=== PATIENT | male | born 1945 | race Caucasian/White ===

== ENCOUNTER 2017-05-08 08:17 | Inpatient (IN) | payer MEDICARE, SELFPAY ==
[2017-05-08] VITALS (9 sets, daily range): BP systolic 135–172; BP diastolic 79–106; PULSE 93–119; RESP 16–91; TEMP 36.6–37.5; O2SAT 90–97; BMI 29.0; BMI 29.4
--- NOTE | 2017-05-08 08:31 | CT_ITS ---
CT abdomen pelvis wo con COMPARISON: Ultrasound the gallbladder same date HISTORY: Right upper quadrant pain and tenderness, nausea and vomiting TECHNIQUE: Multiaxial scans obtained from hemidiaphragms the pelvic floor and were performed without IV or oral contrast. Sagittal and coronal reformats were evaluated as well. FINDINGS: The lower lung [place] are clear except for minimal atelectasis right posterior gutter. There is a moderate-sized hiatal hernia with diffuse wall thickening of the distal esophagus possibly reflecting chronic reflux esophagitis. The stomach is distended with ingested fluid and food particles but otherwise appears normal. The the spleen is normal. Gallbladder is markedly abnormal with multiple calcified and partially calcified gallstones and mild diffuse pericholecystic hazy fat stranding. The pancreas is grossly normal. The liver is normal size and there are no definite dilated intrahepatic ducts. The adrenal glands are normal. The kidneys are normal in size and there is a small faint calculus lower pole left kidney measuring 4 to 5 mm in diameter. There Is no obstructive uropathy. Small bowel appears normal. The appendix is normal caliber and retrocecal in location. There is a moderate amount stool in ascending colon. There are scattered diverticuli of the sigmoid colon without evidence of diverticulitis. The urinary bladder is partially decompressed, the prostate is normal in size. There are small bilateral angle hernias containing fat only. There are prominent degenerative changes of the thoracal lumbar junction. IMPRESSION: 1 obvious cholelithiasis with findings suggesting acute cholecystitis and ultrasound performed the same date showed a positive Forrester's sign 2. Moderate sized hiatal hernia with diffuse wall thickening of the distal esophagus 3. Mild diverticulosis of the sigmoid colon without diverticulitis
--- NOTE | 2017-05-08 08:32 | XR_ITS ---
XR chest 2V COMPARISON: None HISTORY: Right upper quadrant pain TECHNIQUE: PA and lateral chest FINDINGS: This is a somewhat poor inspiration however lung mun[place] are clear of infiltrate. The may be minimal atelectasis at the left base. Cardiac size is normal and the vascularity is normal. There are mild degenerative changes of the midthoracic spine. IMPRESSION: Minimal left basilar atelectasis otherwise negative chest
--- NOTE | 2017-05-08 08:33 | HMH.EDGENADL ---
ED Disposition Clinical Impression: Gallstone pancreatitis Cholecystitis with cholelithiasis Qualifiers: Cholelithiasis location: gallbladder Disposition: Admitted As Inpatient Condition on Discharge: Good - Critical Care Critical Care Time: No Attestation: On , the high probability of a clinically significant, sudden or life threatening deterioration of the following system(s) required my full and direct attention, intervention and personal management. The time I documented below is in addition to time spent performing reported procedures but includes the following listed in this critical care notation. Medical Decision Making - Edward Inquiry Pt receiving controlled substance: No Edward was queried for this patient: No Vital Signs: 05/08/17 08:23 05/08/17 09:48 05/08/17 10:56 Temperature 97.8 F 98.2 F 98.6 F Temperature Source Oral Oral Oral Pulse Rate Pulse Rate [Left Brachial] 97 H 103 H Pulse Rate [Right Brachial] 93 H Respiratory Rate 18 18 18 Blood Pressure Blood Pressure [Left Arm] 135/84 160/79 Blood Pressure [Right Arm] 169/106 Blood Pressure Mean [Left Arm] 101 106 Blood Pressure Mean [Right Arm] 127 Blood Pressure Source Blood Pressure Source [Left Arm] Automatic Cuff Automatic Cuff Blood Pressure Source [Right Arm] Automatic Cuff Blood Pressure Position Blood Pressure Position [Left Arm] Supine Sitting Blood Pressure Position [Right Arm] Supine 02 Sat by Pulse Oximetry 96 97 93 L Oxygen Delivery Method Room Air Room Air Room Air 05/08/17 11:20 05/08/17 11:26 Temperature 98.8 F Temperature Source Oral Pulse Rate 103 H Pulse Rate [Left Brachial] Pulse Rate [Right Brachial] Respiratory Rate 16 Blood Pressure 158/94 Blood Pressure [Left Arm] Blood Pressure [Right Arm] Blood Pressure Mean [Left Arm] Blood Pressure Mean [Right Arm] Blood Pressure Source Automatic Cuff Blood Pressure Source [Left Arm] Blood Pressure Source [Right Arm] Blood Pressure Position Sitting Blood Pressure Position [Left Arm] Blood Pressure Position [Right Arm] 02 Sat by Pulse Oximetry 92 L Oxygen Delivery Method Room Air Room Air - Lab Data Lab Results 05/08/17 08:44: WBC 13.1 H, RBC 5.59, Hgb 16.0, Hct 49.9, MCV 89.3, MCH 28.7, MCHC 32.1, RDW 13.6, Plt Count 335, MPV 7.5, Neut % (Auto) 85.5 H, Lymph % (Auto) 9.9 L, [place] % (Auto) 4.3, Eos % (Auto) 0.1, Baso % (Auto) 0.2, Neut # (Auto) 11.2 H, Lymph # (Auto) 1.3, [place] # (Auto) 0.6, Eos # (Auto) 0.0, Baso # (Auto) 0.0, Total Counted 100, Neutrophils % (Manual) 88 H, Lymphocytes % (Manual) 9 L, Monocytes % (Manual) 3, Platelet Estimate Normal, RBC Morphology Normal 05/08/17 08:44: Sodium 137, Potassium 3.6, Chloride 98, Carbon Dioxide 28, Anion Gap 14.6, BUN 17, Creatinine 1.12, Estimated Creat Clear 72, Estimated GFR 65, Est GFR ( Amer) 78, Glucose 194 H, Calcium 9.2, Total Bilirubin 1.6 H, AST 32, ALT 115 H, Alkaline Phosphatase 187 H, Total Protein 8.9 H, Albumin 3.9, Globulin 5.0 H, Albumin/Globulin Ratio 0.8 L, Amylase 326 H*, Lipase 1172 H 05/08/17 08:44: Lactic Acid 2.2 H 05/08/17 08:44: Lactate Dehydrogenase 181 05/08/17 13:00: Lactic Acid Fup @ 4Hr 2.7 H 05/08/17 15:26: Lactic Acid Fup @ 2Hr 2.6 H 05/08/17 16:30: POC Glucose 187 05/08/17 20:02: Urine Color Yellow, Urine Appearance Clear, Urine pH 5.5, Ur Specific [place] >= 1.030, Urine Protein 2+, Urine Glucose (UA) Negative, Urine Ketones Trace, Urine Blood Negative, Urine Nitrate Negative, Urine Bilirubin 1+ A, Urine Urobilinogen 0.2, Ur Leukocyte Esterase Negative, Urine RBC 3-5, Urine WBC Occasional, Ur Squamous Epith Cells None, Other Crystals 2+, Urine Bacteria 1+ 05/08/17 22:05: POC Glucose 173 05/09/17 05:59: POC Glucose 155 05/09/17 06:49: WBC 24.5 H* D, RBC 5.69, Hgb 16.5, Hct 51.1, MCV 89.7, MCH 28.9, MCHC 32.3, RDW 14.0, Plt Count 341, MPV 8.3, Neut % (Auto) 86.4 H, Lymph % (Auto) 7.1 L, [place] % (Auto) 6.2, Eos % (Auto) 0.2, Baso % (Auto) 0.2
[2017-05-08 09:01] LABS: Basophils % 0.2 % (0.1-2.0); Eosinophils % 0.1 % (0.1-12.0); Hematocrit 49.9 % (42.0-52.0); Lymphocytes # 1.3 K/mm3 (0.7-4.5); Lymphocytes % 9.9 K/mm3 (10-50); Mean Corpuscular HGB Conc 32.1 g/dL (31.8-35.4); Mean Corpuscular Hemoglobin 28.7 pg (27.0-31.2); Mean Corpuscular Volume 89.3 fl (80-94); Mean Platelet Volume 7.5 fl (7.4-10.4); Monocytes # 0.6 K/mm3 (0.1-1.0); Monocytes % 4.3 % (1.7-9.3); Neutrophils # 11.2 K/mm3 (1.8-7.8); Neutrophils % 85.5 % (37.0-80.0); Platelet Count 335 K/mm3 (142-424); Red Blood Count 5.59 M/mm3 (4.60-6.20); Red Cell Distribution Width 13.6 % (11.5-17.5); White Blood Count 13.1 K/mm3 (4.8-10.8)
[2017-05-08 09:04] LABS: MANUAL DIFFERENTIAL MANUAL DIFFERENTIAL (MANUAL DIFF)
--- NOTE | 2017-05-08 09:04 | US_ITS ---
US gallbladder COMPARISON: None HISTORY: Right upper quadrant pain and tenderness, nausea and vomiting TECHNIQUE: Targeted ultrasound right upper quadrant FINDINGS: The pancreas was obscured by bowel gas. The liver is normal in size and shows a somewhat coarsened overall increased echogenicity suggesting fatty infiltration. The gallbladder is markedly abnormal with diffuse thickening of the gallbladder wall. There are multiple calcified and partially calcified gallstones and biliary sludge as well collecting near the neck of the gallbladder. There is marked tenderness over the gallbladder elicited by the transducer pressure. The common bile duct is mildly dilated measuring 0.7 cm in diameter. There is no intrahepatic biliary ductal dilatation. Right kidney measures 10.6 x 5.5 x 5.2 cm and shows a good cortical medullary junction with no hydronephrosis. IMPRESSION: Findings suggesting acute cholecystitis with positive Forrester's sign, obvious cholelithiasis and biliary sludge as well.
[2017-05-08 09:10] LABS: Alanine Aminotransferase 115 U/L (12-78); Albumin Level 3.9 gm/dL (3.4-5.0); Albumin/Globulin Ratio 0.8 (1.1-1.8); Alkaline Phosphatase 187 U/L (46-116); Amylase 326 U/L (25-125); Anion Gap 14.6 mEq/L (5-15); Aspartate Amino Transferase 32 U/L (15-37); Bilirubin,Total 1.6 mg/dL (0.2-1.0); Blood Urea Nitrogen 17 mg/dL (7-18); Calcium 9.2 mg/dL (8.5-10.1); Carbon Dioxide 28 mmol/L (21.0-32.0); Chloride 98 mmol/L (98-107); Creatinine Clearance Estimated 72 mL/min (0-300); Creatinine,Serum 1.12 mg/dL (0.70-1.30); Estimated Glomerular Filt Rate 65 ml/min (>60); GFR (African American) 78 ML/MIN (>60); Glucose 194 mg/dL (74-106); Lipase 1172 u/L (73-393); Potassium 3.6 mmoL/L (3.5-5.1); Sodium 137 mmol/L (136-145); Total Protein,Serum 8.9 gm/dL (6.4-8.2)
[2017-05-08 09:29] LABS: Lactic Acid 2.2 mmol/L (0.4-2.0)
--- NOTE | 2017-05-08 09:29 | HMH.EDABDPAI ---
ED Disposition Clinical Impression: Gallstone pancreatitis Cholecystitis with cholelithiasis Qualifiers: Cholelithiasis location: gallbladder Disposition: Admitted As Inpatient Condition on Discharge: Good - Critical Care Critical Care Time: No Attestation: On , the high probability of a clinically significant, sudden or life threatening deterioration of the following system(s) required my full and direct attention, intervention and personal management. The time I documented below is in addition to time spent performing reported procedures but includes the following listed in this critical care notation. Medical Decision Making - Medical Records Medical records reviewed: Yes: I reviewed the patient's medical records. - Edward Inquiry Pt receiving controlled substance: No Edward was queried for this patient: No Reason not queried -: Emergent pt cond-no time Risks and benefits of using a controlled substance: were discussed with pt by me Vital Signs: 05/08/17 08:23 05/08/17 09:48 Temperature 97.8 F 98.2 F Temperature Source Oral Oral Pulse Rate [Left Brachial] 97 H Pulse Rate [Right Brachial] 93 H Respiratory Rate 18 18 Blood Pressure [Left Arm] 135/84 Blood Pressure [Right Arm] 169/106 Blood Pressure Mean [Left Arm] 101 Blood Pressure Mean [Right Arm] 127 Blood Pressure Source [Left Arm] Automatic Cuff Blood Pressure Source [Right Arm] Automatic Cuff Blood Pressure Position [Left Arm] Supine Blood Pressure Position [Right Arm] Supine 02 Sat by Pulse Oximetry 96 97 Oxygen Delivery Method Room Air Room Air - Lab Data Lab results reviewed: Yes: I reviewed the patient's lab results. Lab Results 05/08/17 08:44: WBC 13.1 H, RBC 5.59, Hgb 16.0, Hct 49.9, MCV 89.3, MCH 28.7, MCHC 32.1, RDW 13.6, Plt Count 335, MPV 7.5, Neut % (Auto) 85.5 H, Lymph % (Auto) 9.9 L, [place] % (Auto) 4.3, Eos % (Auto) 0.1, Baso % (Auto) 0.2, Neut # (Auto) 11.2 H, Lymph # (Auto) 1.3, [place] # (Auto) 0.6, Eos # (Auto) 0.0, Baso # (Auto) 0.0, Total Counted 100, Neutrophils % (Manual) 88 H, Lymphocytes % (Manual) 9 L, Monocytes % (Manual) 3, Platelet Estimate Normal, RBC Morphology Normal 05/08/17 08:44: Sodium 137, Potassium 3.6, Chloride 98, Carbon Dioxide 28, Anion Gap 14.6, BUN 17, Creatinine 1.12, Estimated Creat Clear 72, Estimated GFR 65, Est GFR ( Amer) 78, Glucose 194 H, Calcium 9.2, Total Bilirubin 1.6 H, AST 32, ALT 115 H, Alkaline Phosphatase 187 H, Total Protein 8.9 H, Albumin 3.9, Globulin 5.0 H, Albumin/Globulin Ratio 0.8 L, Amylase 326 H*, Lipase 1172 H 05/08/17 08:44: Lactic Acid 2.2 H Result diagrams: 05/08/17 08:44 05/08/17 08:44 Orders (Tests/Meds): ED MEDICATIONS Generic Name Dose Route Start Last Admin Trade Name Freq PRN Reason Stop Dose Admin Piperacillin Sod/Tazobactam 100 mls @ 200 mls/hr 05/08/17 10:15 05/08/17 10:22 Sod 4.5 gm/ Sodium Chloride IV 05/22/17 10:14 200 mls/hr Q6H ASCENCION Administration Protocol Discontinued Medications Generic Name Dose Route Start Last Admin Trade Name Freq PRN Reason Stop Dose Admin Morphine Sulfate 4 mg 05/08/17 09:34 05/08/17 09:43 Morphine 4mg/Ml Syringe IV 05/08/17 09:35 4 mg ONCE ONE Administration Ondansetron HCl 4 mg 05/08/17 09:36 05/08/17 09:43 Zofran 4mg/2ml Vial IV 05/08/17 09:37 4 mg ONCE ONE Administration ORDERS Category Date Time Status Blood Culture Stat Micro 05/08/17 08:44 Received - CT Data CT Scan: Abdomen Time Received: 10:39 - US Data US Images: Gallbladder ED US Reviewed: Yes: I discussed the US results w/the radiologist Preliminary Findings: Gall Bladder Stones, Thick Gall Bladder Wall - Physician Consults Physician Consulted: Kate ([facility]) Time: 09:41 Reason -: Admission Comment/Response: in surgery until 1100, will call then said he will be a surgical consult Reason -: Admission Additional Consult: Dr Ayala Time: 10:36 Reason -: Admission Abdom
--- NOTE | 2017-05-08 09:32 | ED_ITS ---
ED Disposition Clinical Impression: Gallstone pancreatitis Cholecystitis with cholelithiasis Qualifiers: Cholelithiasis location: gallbladder Disposition: Admitted As Inpatient Condition on Discharge: Good - Critical Care Critical Care Time: No Attestation: On , the high probability of a clinically significant, sudden or life threatening deterioration of the following system(s) required my full and direct attention, intervention and personal management. The time I documented below is in addition to time spent performing reported procedures but includes the following listed in this critical care notation. Medical Decision Making - Medical Records Medical records reviewed: Yes: I reviewed the patient's medical records. - Edward Inquiry Pt receiving controlled substance: No Edward was queried for this patient: No Reason not queried -: Emergent pt cond-no time Risks and benefits of using a controlled substance: were discussed with pt by me Vital Signs: 05/08/17 08:23 05/08/17 09:48 Temperature 97.8 F 98.2 F Temperature Source Oral Oral Pulse Rate [Left Brachial] 97 H Pulse Rate [Right Brachial] 93 H Respiratory Rate 18 18 Blood Pressure [Left Arm] 135/84 Blood Pressure [Right Arm] 169/106 Blood Pressure Mean [Left Arm] 101 Blood Pressure Mean [Right Arm] 127 Blood Pressure Source [Left Arm] Automatic Cuff Blood Pressure Source [Right Arm] Automatic Cuff Blood Pressure Position [Left Arm] Supine Blood Pressure Position [Right Arm] Supine 02 Sat by Pulse Oximetry 96 97 Oxygen Delivery Method Room Air Room Air - Lab Data Lab results reviewed: Yes: I reviewed the patient's lab results. Lab Results 05/08/17 08:44: WBC 13.1 H, RBC 5.59, Hgb 16.0, Hct 49.9, MCV 89.3, MCH 28.7, MCHC 32.1, RDW 13.6, Plt Count 335, MPV 7.5, Neut % (Auto) 85.5 H, Lymph % (Auto ) 9.9 L, [place] % (Auto) 4.3, Eos % (Auto) 0.1, Baso % (Auto) 0.2, Neut # (Auto) 11.2 H, Lymph # (Auto) 1.3, [place] # (Auto) 0.6, Eos # (Auto) 0.0, Baso # (Auto) 0.0, Total Counted 100, Neutrophils % (Manual) 88 H, Lymphocytes % (Manual) 9 L , Monocytes % (Manual) 3, Platelet Estimate Normal, RBC Morphology Normal 05/08/17 08:44: Sodium 137, Potassium 3.6, Chloride 98, Carbon Dioxide 28, Anion Gap 14.6, BUN 17, Creatinine 1.12, Estimated Creat Clear 72, Estimated GFR 65, Est GFR ( Amer) 78, Glucose 194 H, Calcium 9.2, Total Bilirubin 1.6 H, AST 32, ALT 115 H, Alkaline Phosphatase 187 H, Total Protein 8.9 H, Albumin 3.9, Globulin 5.0 H, Albumin/Globulin Ratio 0.8 L, Amylase 326 H*, Lipase 1172 H 05/08/17 08:44: Lactic Acid 2.2 H Result diagrams: 05/08/17 08:44 05/08/17 08:44 Orders (Tests/Meds): ED MEDICATIONS Generic Name Dose Route Start Last Admin Trade Name Freq PRN Reason Stop Dose Admin Piperacillin Sod/Tazobactam 100 mls @ 200 mls/hr 05/08/17 10:15 05/08/17 10: 22 Sod 4.5 gm/ Sodium Chloride IV 05/22/17 10:14 200 mls/hr Q6H ASCENCION Administration Protocol Discontinued Medications Generic Name Dose Route Start Last Admin Trade Name Freq PRN Reason Stop Dose Admin Morphine Sulfate 4 mg 05/08/17 09:34 05/08/17 09:43 Morphine 4mg/Ml Syringe IV 05/08/17 09:35 4 mg ONCE ONE Administration Ondansetron HCl 4 mg 05/08/17 09:36 05/08/17 09:43 Zofran 4mg/2ml Vial IV 05/08/17 09:37 4 mg
[2017-05-08 09:41] LABS: Lymphocytes % 9 % (10-50); Monocytes % 3 % (2-9); Neutrophils % 88 % (42-76); Platelet Estimate Normal; RBC Morphology Normal; Total Cells Counted 100
--- NOTE | 2017-05-08 10:28 | PC.NURSE ---
DR GRAHAM DISCUSSING CASE WITH DR CASTELLANO
--- NOTE | 2017-05-08 10:30 | PC.NURSE ---
DR DENTON CULINARY ASSISTANT FOR SERVICE CALLED TO BE ADMITTED TO SERVICES DR DENTON WITH DX ACUTE CHOLECYSTITIS
[2017-05-08 12:55] LABS: Reflex Lactic Add Lactic Reflex
--- NOTE | 2017-05-08 13:53 | HMH.GSCON ---
*Admission Date: 05/08/17 *Chief complaint: Abdominal pain *History of present illness: Patient is a 72-year-old white male. He states that over the past couple of days he has had right lateral abdominal pain. This had become significantly more severe since last night. There are no exacerbating or alleviating factors. He has never had similar prior episodes. He presented to the emergency department this morning. He underwent evaluation which revealed a leukocytosis and slight elevation of liver function tests as well as elevation of NM's and lipase. He had imaging including CT scan as well as gallbladder ultrasound performed. Gallbladder ultrasound reveals multiple gallstones with some gallbladder wall thickening and 7 mm common bile duct. He was admitted for inpatient management and surgical consultation. Review of Systems - Constitutional Denies chills - Eyes Denies loss of vision - ENT Denies abnormal hearing - *Cardiovascular Denies chest pain - *Respiratory Denies shortness of breath - *Gastrointestinal Reports abdominal pain, Reports nausea - Integumentary/Breasts Denies hair loss [facility] History I have reviewed the patient's past medical history: Yes Medical History: Denies:: Cancer, Diabetes Mellitus Type 1, Diabetes Mellitus Type 2, Internal Pacemaker, MRSA Comment: History of polio Other Surgeries: No: Pacemaker Amputation: No Fractures: No Comment: Left upper extremity surgery for trauma - *Social History Educational Level: Completed High School Smoking Status: Former smoker Tobacco Type: cigarettes # Packs/Day (cigarettes): 3 #Yrs smoked (if former smoker): 15 Alcohol Intake: never Occupational Status: retired Housing: house Household Members: spouse - Psychiatric History Expresses thoughts of harming self/others: None Suicide Plan Description: No Plan *Family Hx:: Asthma, Cancer, Coronary Artery Disease, Diabetes, Heart Attack, Hyperlipidemia, Kidney Disease, Stroke Meds Home Medications Medication Instructions Recorded Confirmed Type No Known Home Medications [No 05/08/17 05/08/17 History Known Home Medications] Allergies Allergy/AdvReac Type Severity Reaction Status Date / Time No Known Allergies Allergy Verified 05/08/17 08:29 Exam Vital signs and Labs for Last 24 Hours: Temp Pulse Resp BP Pulse Ox 98.8 F 106 H 18 172/92 92 L 05/08/17 11:51 05/08/17 11:51 05/08/17 11:51 05/08/17 11:51 05/08/17 11:51 I & O for Last 24 hours: Intake & Output 05/06/17 05/07/17 05/08/17 05/09/17 11:59 11:59 11:59 11:59 Weight 188 lb - Constitutional no acute distress - *Routine HEENT Exam Eye: Absent: conjunctival icterus - *Routine Respiratory Exam Present: CTA bilaterally - *Routine Cardiovascular Exam Present: RRR - *Routine Abdominal Exam Present: tenderness, distended Comments: He has some tenderness with guarding and positive Forrester sign. Results - Labs 05/08/17 08:44 05/08/17 08:44 Assessment and Plan - Assessment and plan all Dx Assessment and Plan for all problems:: Patient actually has some findings consistent with biliary pancreatitis as well as acute cholecystitis at this time. Plan for IV fluids and antibiotics. Closely monitor liver function tests and pancreatic enzymes. If he has progressive elevation of liver function tests, particularly bilirubin and alkaline phosphatase, he could require ERCP rather soon. However, if he continues to show improvement of pancreatic enzymes likely would plan for cholecystectomy with intraoperative cholangiogram once pancreatitis is resolving during this hospitalization. I will send LDH level for full assessment of [place]'s criteria for his pancreatitis.
--- NOTE | 2017-05-08 13:57 | P.CONS_ITS ---
*Admission Date: 05/08/17 *Chief complaint: Abdominal pain *History of present illness: Patient is a 72-year-old white male. He states that over the past couple of days he has had right lateral abdominal pain. This had become significantly more severe since last night. There are no exacerbating or alleviating factors. He has never had similar prior episodes. He presented to the emergency department this morning. He underwent evaluation which revealed a leukocytosis and slight elevation of liver function tests as well as elevation of [place]'s and lipase. He had imaging including CT scan as well as gallbladder ultrasound performed. Gallbladder ultrasound reveals multiple gallstones with some gallbladder wall thickening and 7 mm common bile duct. He was admitted for inpatient management and surgical consultation. Review of Systems - Constitutional Denies chills - Eyes Denies loss of vision - ENT Denies abnormal hearing - *Cardiovascular Denies chest pain - *Respiratory Denies shortness of breath - *Gastrointestinal Reports abdominal pain, Reports nausea - Integumentary/Breasts Denies hair loss [facility] History I have reviewed the patient's past medical history: Yes Medical History: Denies:: Cancer, Diabetes Mellitus Type 1, Diabetes Mellitus Type 2, Internal Pacemaker, MRSA Comment: History of polio Other Surgeries: No: Pacemaker Amputation: No Fractures: No Comment: Left upper extremity surgery for trauma - *Social History Educational Level: Completed High School Smoking Status: Former smoker Tobacco Type: cigarettes # Packs/Day (cigarettes): 3 #Yrs smoked (if former smoker): 15 Alcohol Intake: never Occupational Status: retired Housing: house Household Members: spouse - Psychiatric History Expresses thoughts of harming self/others: None Suicide Plan Description: No Plan *Family Hx:: Asthma, Cancer, Coronary Artery Disease, Diabetes, Heart Attack, Hyperlipidemia, Kidney Disease, Stroke Meds Home Medications Medication Instructions Recorded Confirmed Type No Known Home Medications [No 05/08/17 05/08/17 History Known Home Medications] Allergies Allergy/AdvReac Type Severity Reaction Status Date / Time No Known Allergies Allergy Verified 05/08/17 08:29 Exam Vital signs and Labs for Last 24 Hours: Temp Pulse Resp BP Pulse Ox 98.8 F 106 H 18 172/92 92 L 05/08/17 11:51 05/08/17 11:51 05/08/17 11:51 05/08/17 11:51 05/08/17 11:51 I & O for Last 24 hours: Intake & Output 05/06/17 05/07/17 05/08/17 05/09/17 11:59 11:59 11:59 11:59 Weight 188 lb - Constitutional no acute distress - *Routine HEENT Exam Eye: Absent: conjunctival icterus - *Routine Respiratory Exam Present: CTA bilaterally - *Routine Cardiovascular Exam Present: RRR - *Routine Abdominal Exam Present: tenderness, distended Comments: He has some tenderness with guarding and positive Forrester sign. Results - Labs 05/08/17 08:44 05/08/17 08:44 Assessment and Plan - Assessment and plan all Dx Assessment and Plan for all problems:: Patient actually has some findings consistent with biliary pancreatitis as well as acute cholecystitis at this time. Plan for IV fluids and antibiotics. Closely monitor liver function tests and pancreatic enzymes
[2017-05-08 14:03] LABS: Lactic Acid Follow Up (RFLX 1) 2.7 (0.4-2.0)
[2017-05-08 14:52] LABS: Lactate Dehydrogenase 181 U/L (82-234)
--- NOTE | 2017-05-08 14:57 | HMH.HP ---
*Admission Date: 05/08/17 *Chief complaint: abdominal pain, vomiting *History of present illness: Mr. Smith is a 72-year-old white male with no significant medical hx. He states that over the past couple of days he has had right lateral abdominal pain. This had become significantly more severe since last night. There are no exacerbating or alleviating factors. He has never had similar prior episodes. He has been nauseated and vomiting. He presented to the emergency department this morning. He underwent evaluation which revealed a leukocytosis and slight elevation of liver function tests as well as elevation of lipase. He had imaging including CT scan as well as gallbladder ultrasound performed. Gallbladder ultrasound revealed multiple gallstones with some gallbladder wall thickening and 7 mm common bile duct. He was admitted for inpatient management and surgical consultation. [facility] History Medical History: Denies:: Cancer, Diabetes Mellitus Type 1, Diabetes Mellitus Type 2, Internal Pacemaker, MRSA Comment: Polio as a child Other Surgeries: No: Pacemaker Amputation: No Fractures: No Comment: Left arm repair, left knee, right great toe - *Social History Educational Level: Completed High School Smoking Status: Former smoker Tobacco Type: cigarettes # Packs/Day (cigarettes): 3 #Yrs smoked (if former smoker): 15 Alcohol Intake: never Occupational Status: retired Housing: house Household Members: spouse - Psychiatric History Expresses thoughts of harming self/others: None Suicide Plan Description: No Plan *Family Hx:: Asthma, Cancer, Coronary Artery Disease, Diabetes, Heart Attack, Hyperlipidemia, Hypertension, Kidney Disease, Stroke Review of Systems - Constitutional Denies body ache(s), Denies fatigue, Denies weakness - Eyes Denies blurry vision, Denies double vision - ENT Denies nasal congestion, Denies sore throat - *Cardiovascular Denies chest pain, Denies shortness of breath - *Respiratory Denies cough, Denies shortness of breath - *Gastrointestinal Reports abdominal pain (RMQ and RUQ), Reports nausea, Reports vomiting - *Genitourinary Denies difficulty urinating, Denies painful urination - *Musculoskeletal Denies joint pain, Denies muscle cramps - *Neurologic Denies abnormal hearing, Denies headache(s), Denies loss of vision, Denies dizziness, Denies weakness Meds Home Medications Medication Instructions Recorded Confirmed Type No Known Home Medications [No 05/08/17 05/08/17 History Known Home Medications] Allergies Allergy/AdvReac Type Severity Reaction Status Date / Time No Known Allergies Allergy Verified 05/08/17 08:29 Exam Vital signs and Labs for Last 24 Hours: Temp Pulse Resp BP Pulse Ox 98.8 F 106 H 18 172/92 92 L 05/08/17 11:51 05/08/17 11:51 05/08/17 11:51 05/08/17 11:51 05/08/17 11:51 Lab Results 05/08/17 08:44: WBC 13.1 H, RBC 5.59, Hgb 16.0, Hct 49.9, MCV 89.3, MCH 28.7, MCHC 32.1, RDW 13.6, Plt Count 335, MPV 7.5, Neut % (Auto) 85.5 H, Lymph % (Auto) 9.9 L, [place] % (Auto) 4.3, Eos % (Auto) 0.1, Baso % (Auto) 0.2, Neut # (Auto) 11.2 H, Lymph # (Auto) 1.3, [place] # (Auto) 0.6, Eos # (Auto) 0.0, Baso # (Auto) 0.0, Total Counted 100, Neutrophils % (Manual) 88 H, Lymphocytes % (Manual) 9 L, Monocytes % (Manual) 3, Platelet Estimate Normal, RBC Morphology Normal 05/08/17 08:44: Sodium 137, Potassium 3.6, Chloride 98, Carbon Dioxide 28, Anion Gap 14.6, BUN 17, Creatinine 1.12, Estimated Creat Clear 72, Estimated GFR 65, Est GFR ( Amer) 78, Glucose 194 H, Calcium 9.2, Total Bilirubin 1.6 H, AST 32, ALT 115 H, Alkaline Phosphatase 187 H, Total Protein 8.9 H, Albumin 3.9, Globulin 5.0 H, Albumin/Globulin Ratio 0.8 L, Amylase 326 H*, Lipase 1172 H 05/08/17 08:44: Lactic Acid 2.2 H 05/08/17 08:44: Lactate Dehydrogenase 181 05/08/17 13:00: Lactic Acid Fup @ 4Hr 2.7 H Microbiology Results 05/08/17 08:44 Blood Blood Culture - Pending
--- NOTE | 2017-05-08 15:01 | P.HP_ITS ---
*Admission Date: 05/08/17 *Chief complaint: abdominal pain, vomiting *History of present illness: Mr. Smith is a 72-year-old white male with no significant medical hx. He states that over the past couple of days he has had right lateral abdominal pain. This had become significantly more severe since last night. There are no exacerbating or alleviating factors. He has never had similar prior episodes. He has been nauseated and vomiting. He presented to the emergency department this morning. He underwent evaluation which revealed a leukocytosis and slight elevation of liver function tests as well as elevation of lipase. He had imaging including CT scan as well as gallbladder ultrasound performed. Gallbladder ultrasound revealed multiple gallstones with some gallbladder wall thickening and 7 mm common bile duct. He was admitted for inpatient management and surgical consultation. [facility] History Medical History: Denies:: Cancer, Diabetes Mellitus Type 1, Diabetes Mellitus Type 2, Internal Pacemaker, MRSA Comment: Polio as a child Other Surgeries: No: Pacemaker Amputation: No Fractures: No Comment: Left arm repair, left knee, right great toe - *Social History Educational Level: Completed High School Smoking Status: Former smoker Tobacco Type: cigarettes # Packs/Day (cigarettes): 3 #Yrs smoked (if former smoker): 15 Alcohol Intake: never Occupational Status: retired Housing: house Household Members: spouse - Psychiatric History Expresses thoughts of harming self/others: None Suicide Plan Description: No Plan *Family Hx:: Asthma, Cancer, Coronary Artery Disease, Diabetes, Heart Attack, Hyperlipidemia, Hypertension, Kidney Disease, Stroke Review of Systems - Constitutional Denies body ache(s), Denies fatigue, Denies weakness - Eyes Denies blurry vision, Denies double vision - ENT Denies nasal congestion, Denies sore throat - *Cardiovascular Denies chest pain, Denies shortness of breath - *Respiratory Denies cough, Denies shortness of breath - *Gastrointestinal Reports abdominal pain (RMQ and RUQ), Reports nausea, Reports vomiting - *Genitourinary Denies difficulty urinating, Denies painful urination - *Musculoskeletal Denies joint pain, Denies muscle cramps - *Neurologic Denies abnormal hearing, Denies headache(s), Denies loss of vision, Denies dizziness, Denies weakness Meds Home Medications Medication Instructions Recorded Confirmed Type No Known Home Medications [No 05/08/17 05/08/17 History Known Home Medications] Allergies Allergy/AdvReac Type Severity Reaction Status Date / Time No Known Allergies Allergy Verified 05/08/17 08:29 Exam Vital signs and Labs for Last 24 Hours: Temp Pulse Resp BP Pulse Ox 98.8 F 106 H 18 172/92 92 L 05/08/17 11:51 05/08/17 11:51 05/08/17 11:51 05/08/17 11:51 05/08/17 11:51 Lab Results 05/08/17 08:44: WBC 13.1 H, RBC 5.59, Hgb 16.0, Hct 49.9, MCV 89.3, MCH 28.7, MCHC 32.1, RDW 13.6, Plt Count 335, MPV 7.5, Neut % (Auto) 85.5 H, Lymph % (Auto ) 9.9 L, [place] % (Auto) 4.3, Eos % (Auto) 0.1, Baso % (Auto) 0.2, Neut # (Auto) 11.2 H, Lymph # (Auto) 1.3, [place] # (Auto) 0.6, Eos # (Auto) 0.0, Baso # (Auto) 0.0, Total Counted 100, Neutrophils % (Manual) 88 H, Lymphocytes % (Manual) 9 L , Monocytes % (Manual) 3, Platelet Estimate Normal, RBC Morphology Normal 05/08/17 08:44: Sodium 137, Potassium 3.6, Chloride 98, Carbon Dioxide 28, Anion Gap 14.6, BUN
--- NOTE | 2017-05-08 15:07 | PC.NURSE ---
PT REFUSED 1300 FSBS. PT STATED I AM NOT DIABETIC, I WON'T HAVE MY FINGER POKED. EDUCATION PROVIDED TO PATIENT ON IMPORTANCE OF FSBS. WILL CONTINUE TO MONITOR.
[2017-05-08 15:14] LABS: Reflex Lactic (2 hrs) Add Lactic Reflex
[2017-05-08 15:56] LABS: Lactic Acid Follow up (RFLX 2) 2.6 (0.4-2.0)
--- NOTE | 2017-05-08 15:58 | PC.NURSE ---
PT IS ALERT AND ORIENTED X3. CLEAR SPEECH, APPROPRIATE MOOD/AFFECT, FORGETFUL AT TIMES. PT IS RESTING IN BED. PAIN MEDICATION ADMINISTERED PER MAR. NO C/O NAUSEA/VOMITING/DIARRHEA. VSS. IV IS SECURE, PATENT AND INFUSING IVF. FALL PREVENTION EDUCATION PROVIDED, CALL LIGHT WITHIN REACH. WILL CONTINUE TO MONITOR
--- NOTE | 2017-05-08 16:42 | CA_ITS ---
PROCEDURE: 2-D M-mode and color Doppler study INDICATIONS FOR THE TEST: Chest pain COPD Heart Murmur Tobacco Smokingex Palpitations Fatigue Syncope Edema Hypertension Diabetes Mellitus Rheumatic Fever SOB AGUILAR Obesity+Hyperlipidemia Family History HD Additional History vague history of cardiac disease PATIENT INFORMATION HEIGHT: 67 WEIGHT: 188 GENDER: Male B/P: 172/92 2-D/M-MODE INTERPRETATION: 2-D MEASUREMENTS OBSERVED VALUES IN CMS Right Ventricular Dimension (RVDd) 2.5 Interventricular Septum (Thickness)(IVsd) 1.6 Left Ventricular Internal Dimensions(LVIDd) 2.3 Left Ventricular Posterior Wall (Thickness)(LVPWd) 1.1 Aortic Root 3.1 Aortic Cusp Separation 2.2 Left Atrial Dimensions (LAD) 2.6 2D 1. Left atrium is mildly enlarged, left ventricle is normal size, there is mild concentric left ventricular hypertrophy, there is hyperdynamic left ventricular systolic function, visually estimated ejection fraction over 65% with no obvious regional wall motion abnormality. 2. The right atrium and right ventricle are normal size and contractility. 3. The aortic valve is minimally thickened and fibrosed. 4. The mitral and tricuspid valve leaflets are minimally thickened. 5. The pulmonic valve is poorly visualized. 6. No significant pericardial effusion noted. DOPPLER INTERROGATION: Doppler interrogation of the aortic, mitral and tricuspid valvular presence of mild mitral and tricuspid regurgitation, tricuspid regurgitant jet velocity is insufficient for calculation of the right ventricular systolic pressure, diastolic parameters are inconclusive. CONCLUSION: 1. Normal left ventricular size, mild concentric left ventricular hypertrophy, visually estimated ejection fraction over 65% with no obvious regional wall motion abnormality, left ventricle is hyperdynamic. Diastolic parameters are inconclusive. 2. Mild mitral and tricuspid regurgitation 3. No significant pericardial effusion noted.
--- NOTE | 2017-05-08 19:35 | PC.NURSE ---
report given to antonella hutchinson
[2017-05-08 20:16] LABS: Microscopic, Urine URINE MICROSCOPIC (MICROSCOPIC)
[2017-05-08 20:23] LABS: Appearance,Urine CLEAR (Clear); Blood, Urine Negative (Negative); Color,Urine YELLOW (Yellow); Glucose,Urine (UA) Negative (Negative); Ketones,Urine TRACE (Negative); Leukocyte Esterase,Urine Negative (Negative); Nitrate,Urine Negative (Negative); PH,Urine 5.5 (5.0-8.5); Protein,Urine 2+ (Negative); Specific Gravity, Urine >= 1.030 (1.005-1.030); Urobilinogen,Urine 0.2 EU/dl (0.2)
[2017-05-08 20:25] LABS: Bilirubin,Urine 1+ (Negative)
[2017-05-08 20:49] LABS: Bacteria,Urine 1+ /lpf; Other Crystals,Urine 2+ /lpf; WBC,Urine Occasional #/hpf (0-3)
[2017-05-08 22:14] LABS: POC Glucose,Bedside 173 mg/dL (70-110)
[2017-05-09 02:01] LABS: POC Glucose,Bedside 187 mg/dL (70-110)
[2017-05-09 04:00] VITALS: BP 137/75; PULSE 139; RESP 18; TEMP 37.3; O2SAT 92
[2017-05-09 06:07] LABS: POC Glucose,Bedside 155 mg/dL (70-110)
--- NOTE | 2017-05-09 06:45 | PC.NURSE ---
PT COMPLAINS OF PAIN T/O SHIFT IN RIGHT SIDE OF ABDOMEN, DENIES N/V BUT STATES I HAVE THIS STUFF IN MY THROAT I CANT GET UP LUNG SOUNDS CLEAR, BS ACTIVE IN ALL 4 QAUDS. VSS. A&OX3. NO ACUTE DISTRESS NOTED. WILL CONTINUE TO MONITOR.
--- NOTE | 2017-05-09 07:10 | PC.NURSE ---
REPORT GIVEN TO Kenia CHAVEZ RN
--- NOTE | 2017-05-09 07:35 | PC.NURSE ---
REPORT GIVEN TO April BANKS W/C
[2017-05-09 07:55] LABS: Alanine Aminotransferase 65 U/L (12-78); Albumin Level 2.8 gm/dL (3.4-5.0); Albumin/Globulin Ratio 0.6 (1.1-1.8); Alkaline Phosphatase 118 U/L (46-116); Amylase 149 U/L (25-125); Anion Gap 14.1 mEq/L (5-15); Aspartate Amino Transferase 11 U/L (15-37); Bilirubin,Total 1.7 mg/dL (0.2-1.0); Blood Urea Nitrogen 34 mg/dL (7-18); Calcium 8.7 mg/dL (8.5-10.1); Carbon Dioxide 26 mmol/L (21.0-32.0); Chloride 102 mmol/L (98-107); Cholesterol 128 mg/dL (140-200); Creatinine Clearance Estimated 60 mL/min (0-300); Creatinine,Serum 1.37 mg/dL (0.70-1.30); Estimated Glomerular Filt Rate 51 ml/min (>60); GFR (African American) 62 ML/MIN (>60); Globulin 4.6 gm/dl (1.3-3.2); Glucose 168 mg/dL (74-106); HDL Cholesterol 42 mg/dL (27-67); LDL Cholesterol 74 mg/dL (0-130); Lipase 399 u/L (73-393); Magnesium 1.8 mg/dL (1.4-2.2); Phosphorous 2.9 mg/dL (2.4-4.9); Potassium 4.1 mmoL/L (3.5-5.1); Sodium 138 mmol/L (136-145); Total Protein,Serum 7.4 gm/dL (6.4-8.2); Triglycerides 59 mg/dL (30-200); VLDL Cholesterol 12 mg/dL (0-40)
[2017-05-09 08:00] VITALS: BP 148/56; PULSE 111; RESP 18; TEMP 37.3; O2SAT 91
[2017-05-09 08:03] LABS: Basophils # 0.1 K/mm3 (0-0.2); Basophils % 0.2 % (0.1-2.0); Eosinophils % 0.2 % (0.1-12.0); Hematocrit 51.1 % (42.0-52.0); Hemoglobin 16.5 g/dL (14.1-18.0); Lymphocytes # 1.8 K/mm3 (0.7-4.5); Lymphocytes % 7.1 K/mm3 (10-50); Mean Corpuscular HGB Conc 32.3 g/dL (31.8-35.4); Mean Corpuscular Hemoglobin 28.9 pg (27.0-31.2); Mean Corpuscular Volume 89.7 fl (80-94); Mean Platelet Volume 8.3 fl (7.4-10.4); Monocytes # 1.5 K/mm3 (0.1-1.0); Monocytes % 6.2 % (1.7-9.3); Neutrophils # 21.2 K/mm3 (1.8-7.8); Neutrophils % 86.4 % (37.0-80.0); Platelet Count 341 K/mm3 (142-424); Red Blood Count 5.69 M/mm3 (4.60-6.20); White Blood Count 24.5 K/mm3 (4.8-10.8)
--- NOTE | 2017-05-09 08:29 | P.PN_ITS ---
Subjective Patient reports: feels better Narrative: Patient feels somewhat better. He attributes this to placing his cell phone on the tender part of his abdomen. Exam Vital signs and Labs for Last 24 Hours: Temp Pulse Resp BP Pulse Ox 99.2 F 111 H 18 148/56 91 L 05/09/17 08:00 05/09/17 08:00 05/09/17 08:00 05/09/17 08:00 05/09/17 08:00 Laboratory Results - last 24 hr 05/08/17 13:00: Lactic Acid Fup @ 4Hr 2.7 H 05/08/17 15:26: Lactic Acid Fup @ 2Hr 2.6 H 05/08/17 16:30: POC Glucose 187 05/08/17 20:02: Urine Color Yellow, Urine Appearance Clear, Urine pH 5.5, Ur Specific [place] >= 1.030, Urine Protein 2+, Urine Glucose (UA) Negative, Urine Ketones Trace, Urine Blood Negative, Urine Nitrate Negative, Urine Bilirubin 1+ A, Urine Urobilinogen 0.2, Ur Leukocyte Esterase Negative, Urine RBC 3-5, Urine WBC Occasional, Ur Squamous Epith Cells None, Other Crystals 2+, Urine Bacteria 1+ 05/08/17 22:05: POC Glucose 173 05/09/17 05:59: POC Glucose 155 05/09/17 06:49: Sodium 138, Potassium 4.1, Chloride 102, Carbon Dioxide 26, Anion Gap 14.1, BUN 34 H D, Creatinine 1.37 H D, Estimated Creat Clear 60, Estimated GFR 51 L, Est GFR ( Amer) 62 D, Glucose 168 H, Calcium 8.7, Phosphorus 2.9, Magnesium 1.8, Total Bilirubin 1.7 H, AST 11 L D, ALT 65 D, Alkaline Phosphatase 118 H, Total Protein 7.4, Albumin 2.8 L D, Globulin 4.6 H, Albumin/Globulin Ratio 0.6 L, Triglycerides 59, Cholesterol 128 L, LDL Cholesterol 74, VLDL Cholesterol 12, HDL Cholesterol 42, Cholesterol/HDL Ratio 3.0, Amylase 149 H D, Lipase 399 H I & O for Last 24 hours: Intake & Output 05/06/17 05/07/17 05/08/17 05/09/17 11:59 11:59 11:59 11:59 Intake Total 1687 / 1687 Balance 1687 / 1687 Weight 188 lb - *Routine Abdominal Exam Present: tenderness, distended, guarding Progress Note: A&P (1) Cholecystitis with cholelithiasis Status: Acute Current Visit: Yes (2) Gallstone pancreatitis Status: Acute Assessment and plan: Pancreatitis appears to be improving by blood work. This time continue bowel rest, IV fluids, and antibiotics. Monitor liver function tests and pancreatic enzymes. Likely tentatively plan for laparoscopic cholecystectomy with intraoperative cholangiogram Thursday. However, if he shows significant elevation of bilirubin he could require ERCP Thursday. Current Visit: Yes (3) Leukocytosis Status: Acute Current Visit: Yes (4) Elevated lactic acid level Status: Acute Current Visit: Yes
[2017-05-09 08:32] LABS: MANUAL DIFFERENTIAL MANUAL DIFFERENTIAL (MANUAL DIFF)
--- NOTE | 2017-05-09 08:39 | HMH.ACPN2 ---
Internal Medicine - PN: Subj *Date: 05/09/17 *Time: 08:39 Interval history: Patient states his pain is improved slightly this morning. He states it feels better if he puts his cell phone near his abdomen. He would like some ice chips. No vomiting. Nausea has improved. Exam Vital signs and Labs for Last 24 Hours: Temp Pulse Resp BP Pulse Ox 99.2 F 111 H 18 148/56 91 L 05/09/17 08:00 05/09/17 08:00 05/09/17 08:00 05/09/17 08:00 05/09/17 08:00 Laboratory Results - last 24 hr 05/08/17 13:00: Lactic Acid Fup @ 4Hr 2.7 H 05/08/17 15:26: Lactic Acid Fup @ 2Hr 2.6 H 05/08/17 16:30: POC Glucose 187 05/08/17 20:02: Urine Color Yellow, Urine Appearance Clear, Urine pH 5.5, Ur Specific [place] >= 1.030, Urine Protein 2+, Urine Glucose (UA) Negative, Urine Ketones Trace, Urine Blood Negative, Urine Nitrate Negative, Urine Bilirubin 1+ A, Urine Urobilinogen 0.2, Ur Leukocyte Esterase Negative, Urine RBC 3-5, Urine WBC Occasional, Ur Squamous Epith Cells None, Other Crystals 2+, Urine Bacteria 1+ 05/08/17 22:05: POC Glucose 173 05/09/17 05:59: POC Glucose 155 05/09/17 06:49: WBC 24.5 H* D, RBC 5.69, Hgb 16.5, Hct 51.1, MCV 89.7, MCH 28.9, MCHC 32.3, RDW 14.0, Plt Count 341, MPV 8.3, Neut % (Auto) 86.4 H, Lymph % (Auto) 7.1 L, [place] % (Auto) 6.2, Eos % (Auto) 0.2, Baso % (Auto) 0.2, Neut # (Auto) 21.2 H, Lymph # (Auto) 1.8, [place] # (Auto) 1.5 H, Eos # (Auto) 0.0, Baso # (Auto) 0.1 05/09/17 06:49: Sodium 138, Potassium 4.1, Chloride 102, Carbon Dioxide 26, Anion Gap 14.1, BUN 34 H D, Creatinine 1.37 H D, Estimated Creat Clear 60, Estimated GFR 51 L, Est GFR ( Amer) 62 D, Glucose 168 H, Calcium 8.7, Phosphorus 2.9, Magnesium 1.8, Total Bilirubin 1.7 H, AST 11 L D, ALT 65 D, Alkaline Phosphatase 118 H, Total Protein 7.4, Albumin 2.8 L D, Globulin 4.6 H, Albumin/Globulin Ratio 0.6 L, Triglycerides 59, Cholesterol 128 L, LDL Cholesterol 74, VLDL Cholesterol 12, HDL Cholesterol 42, Cholesterol/HDL Ratio 3.0, Amylase 149 H D, Lipase 399 H I & O for Last 24 hours: Intake & Output 05/06/17 05/07/17 05/08/17 05/09/17 11:59 11:59 11:59 11:59 Intake Total 1687 / 1687 Balance 1687 / 1687 Weight 188 lb - Constitutional no acute distress - *Routine Respiratory Exam Present: CTA bilaterally - *Routine Cardiovascular Exam Present: RRR - *Routine Abdominal Exam Present: soft, normoactive bowel sounds, tenderness (RUQ and RMQ) - *Routine Extremities Exam Absent: edema Assessment and Plan (1) Cholecystitis with cholelithiasis Current visit: Yes Status: Acute Qualifiers: Cholelithiasis location: gallbladder Category: Medical Code(s): K80.10 - Calculus of gallbladder with chronic cholecystitis without obstruction (2) Gallstone pancreatitis Current visit: Yes Status: Acute Category: Medical Code(s): K85.10 - Biliary acute pancreatitis without necrosis or infection (3) Leukocytosis Current visit: Yes Status: Acute Category: Medical Code(s): D72.829 - Elevated white blood cell count, unspecified (4) Elevated lactic acid level Current visit: Yes Status: Acute Category: Medical Code(s): R79.89 - Other specified abnormal findings of blood chemistry - Assessment and plan all Dx Assessment and Plan for all problems:: His pancreatitis appears to be improving by blood work. Dr. Gatica recommends bowel rest, IV fluids, and antibiotics. Will monitor liver function tests and pancreatic enzymes. Possibly can do a laparoscopic cholecystectomy with intraoperative cholangiogram Thursday.
--- NOTE | 2017-05-09 08:42 | P.PN_ITS ---
Internal Medicine - PN: Subj *Date: 05/09/17 *Time: 08:39 Interval history: Patient states his pain is improved slightly this morning. He states it feels better if he puts his cell phone near his abdomen. He would like some ice chips. No vomiting. Nausea has improved. Exam Vital signs and Labs for Last 24 Hours: Temp Pulse Resp BP Pulse Ox 99.2 F 111 H 18 148/56 91 L 05/09/17 08:00 05/09/17 08:00 05/09/17 08:00 05/09/17 08:00 05/09/17 08:00 Laboratory Results - last 24 hr 05/08/17 13:00: Lactic Acid Fup @ 4Hr 2.7 H 05/08/17 15:26: Lactic Acid Fup @ 2Hr 2.6 H 05/08/17 16:30: POC Glucose 187 05/08/17 20:02: Urine Color Yellow, Urine Appearance Clear, Urine pH 5.5, Ur Specific [place] >= 1.030, Urine Protein 2+, Urine Glucose (UA) Negative, Urine Ketones Trace, Urine Blood Negative, Urine Nitrate Negative, Urine Bilirubin 1+ A, Urine Urobilinogen 0.2, Ur Leukocyte Esterase Negative, Urine RBC 3-5, Urine WBC Occasional, Ur Squamous Epith Cells None, Other Crystals 2+, Urine Bacteria 1+ 05/08/17 22:05: POC Glucose 173 05/09/17 05:59: POC Glucose 155 05/09/17 06:49: WBC 24.5 H* D, RBC 5.69, Hgb 16.5, Hct 51.1, MCV 89.7, MCH 28.9 , MCHC 32.3, RDW 14.0, Plt Count 341, MPV 8.3, Neut % (Auto) 86.4 H, Lymph % ( Auto) 7.1 L, [place] % (Auto) 6.2, Eos % (Auto) 0.2, Baso % (Auto) 0.2, Neut # ( Auto) 21.2 H, Lymph # (Auto) 1.8, [place] # (Auto) 1.5 H, Eos # (Auto) 0.0, Baso # (Auto) 0.1 05/09/17 06:49: Sodium 138, Potassium 4.1, Chloride 102, Carbon Dioxide 26, Anion Gap 14.1, BUN 34 H D, Creatinine 1.37 H D, Estimated Creat Clear 60, Estimated GFR 51 L, Est GFR ( Amer) 62 D, Glucose 168 H, Calcium 8.7, Phosphorus 2.9, Magnesium 1.8, Total Bilirubin 1.7 H, AST 11 L D, ALT 65 D, Alkaline Phosphatase 118 H, Total Protein 7.4, Albumin 2.8 L D, Globulin 4.6 H, Albumin/Globulin Ratio 0.6 L, Triglycerides 59, Cholesterol 128 L, LDL Cholesterol 74, VLDL Cholesterol 12, HDL Cholesterol 42, Cholesterol/HDL Ratio 3.0, Amylase 149 H D, Lipase 399 H I & O for Last 24 hours: Intake & Output 05/06/17 05/07/17 05/08/17 05/09/17 11:59 11:59 11:59 11:59 Intake Total 1687 / 1687 Balance 1687 / 1687 Weight 188 lb - Constitutional no acute distress - *Routine Respiratory Exam Present: CTA bilaterally - *Routine Cardiovascular Exam Present: RRR - *Routine Abdominal Exam Present: soft, normoactive bowel sounds, tenderness (RUQ and RMQ) - *Routine Extremities Exam Absent: edema Assessment and Plan (1) Cholecystitis with cholelithiasis Current visit: Yes Status: Acute Qualifiers: Cholelithiasis location: gallbladder Category: Medical Code(s): K80.10 - Calculus of gallbladder with chronic cholecystitis without obstruction (2) Gallstone pancreatitis Current visit: Yes Status: Acute Category: Medical Code(s): K85.10 - Biliary acute pancreatitis without necrosis or infection (3) Leukocytosis Current visit: Yes Status: Acute Category: Medical Code(s): D72.829 - Elevated white blood cell count, unspecified (4) Elevated lactic acid level Current visit: Yes Status: Acute Category: Medical Code(s): R79.89 - Other specified abnormal findings of blood chemistry - Assessment and plan all Dx Assessment and Plan for all problems:: His pancreatitis appears to be improving by blood work. Dr. Gatica recommends bowel rest, IV fluids, and antibiotics. Will monitor liver function tests and pancreatic enzymes. Possibly can do a laparoscopic cho
[2017-05-09 09:31] LABS: Lymphocytes % 11 % (10-50); Monocytes % 11 % (2-9); Neutrophils % 78 % (42-76); Total Cells Counted 100
[2017-05-09 09:32] LABS: Platelet Estimate Normal; RBC Morphology Normal
[2017-05-09 11:24] LABS: POC Glucose,Bedside 148 mg/dL (70-110)
--- NOTE | 2017-05-09 13:42 | P.CONPHA_ITS ---
[facility] Pharmacy VTE Monitoring - Patient Demographics Admission date: 05/09/17 Report Date: 05/09/17 Time: 13:41 Allergies/Adverse Reactions: Patient Allergies No Known Allergies Allergy (Verified 05/08/17 08:29) Height: 1.7 m Weight: 85.275 kg Patient Problems: Current Active Problems Cholecystitis with cholelithiasis (Acute) Gallstone pancreatitis (Acute) Leukocytosis (Acute) Elevated lactic acid level (Acute) - VTE Risk Labs: VTE Related Lab Results Hgb 16.5 g/dL (14.1-18.0) 05/09/17 06:49 Hct 51.1 % (42.0-52.0) 05/09/17 06:49 Plt Count 341 K/mm3 (142-424) 05/09/17 06:49 BUN 34 mg/dL (7-18) H D 05/09/17 06:49 Creatinine 1.37 mg/dL (0.70-1.30) H D 05/09/17 06:49 Estimated Creat Clear 60 mL/min (0-300) 05/09/17 06:49 Was VTE Risk Assessment Performed: Yes VTE Score: 2 VTE Risk Level: Low Risk - Prophylaxis Types of VTE Prophylaxis: TEDS Knee High Location of Applied Device: Bilateral Lower Extremeties - VTE Diagnosis Confirmed Comment: CYRUS ARANA ORDERED
[2017-05-09 16:00] VITALS: BP 141/81; PULSE 116; RESP 16; TEMP 37.4; O2SAT 90
--- NOTE | 2017-05-09 17:52 | PC.NURSE ---
PT A&Ox4 IN NAD THIS SHIFT. VSS. PT REPORTS PAIN 7-10/10 IN (R) ABDOMEN AND MEDICATED WITH MORPHINE PER APR. HEART RATE REG. LUNGS CTA. ABD SOFT, ROUND, TENDER WITH HYPOACTIVE BS x4 QUADS. (R) AC IV INFUSING D 5 1/2 NS @ 50ML/HR /S DIFFICULTY. NO S/S OF INFILTRATION/INFECTION AT INSERTION SITE. PT SHOWED THIS NURSE AN INAPPROPRIATE PICTURE AND WAS REDIRECTED THIS SHIFT. BED IN LOW POSITION, CALL MARTELL WITHIN REACH. WILL CONTINUE TO MONITOR.
--- NOTE | 2017-05-09 19:04 | PC.NURSE ---
Report given to Igor Abel RN
--- NOTE | 2017-05-09 19:20 | PC.NURSE ---
PT FULL CODE, REPORT FROM BETH
[2017-05-09 20:00] VITALS: BP 135/71; PULSE 112; RESP 16; TEMP 38.3; O2SAT 98
--- NOTE | 2017-05-09 20:11 | PC.NURSE ---
nurse notifiied of pts temp
--- NOTE | 2017-05-09 21:20 | PC.NURSE ---
Dr Ayala visited. New orders received
[2017-05-09 22:28] LABS: POC Glucose,Bedside 119 mg/dL (70-110)
--- NOTE | 2017-05-09 22:38 | PC.NURSE ---
PT RECEIVED MORPHINE AT 2207 FOR PAIN IN ABDOMEN RATED AT 10; REASSESSED AT 2237, ZERO PT IS SLEEPING
[2017-05-10 02:12] LABS: POC Glucose,Bedside 113 mg/dL (70-110)
--- NOTE | 2017-05-10 03:27 | PC.NURSE ---
PT ADMINISTERED MORPHINE AT 0257 FOR PAIN IN ABDOMEN RATED 10; REASSESSED AT 0327 AND ZERO PT IS ASLEEP
[2017-05-10 04:00] VITALS: BP 105/51; PULSE 114; RESP 20; TEMP 36.7; O2SAT 91
--- NOTE | 2017-05-10 06:01 | PC.NURSE ---
PT SLEPT INTERVALS THIS SHIFT. C/O ABD PAIN X2 REQUIRING PRN PAIN MEDICATION. IV SECURE AND PATENT INFUSING D51/2NS@50/HR, ALSO CONTINUES ANTIBIOTICS. PT HAS A.M. LABS SCHEDULED. BREATH SOUNDS EQUAL AND CLEAR. NO C/O CHEST PAIN OR SOA. PT STABLE. WILL CONTINUE TO MONITOR. REPORT TO BE GIVEN TO ONCOMING NURSE.
[2017-05-10 06:25] LABS: Basophils % 0.2 % (0.1-2.0); Eosinophils # 0.1 K/mm3 (0.0-0.4); Eosinophils % 0.4 % (0.1-12.0); Hematocrit 45.4 % (42.0-52.0); Lymphocytes # 1.7 K/mm3 (0.7-4.5); Mean Corpuscular Hemoglobin 28.9 pg (27.0-31.2); Mean Corpuscular Volume 90.3 fl (80-94); Mean Platelet Volume 7.8 fl (7.4-10.4); Monocytes % 5.8 % (1.7-9.3); Neutrophils # 14.6 K/mm3 (1.8-7.8); Neutrophils % 83.6 % (37.0-80.0); Platelet Count 282 K/mm3 (142-424); Red Blood Count 5.03 M/mm3 (4.60-6.20); Red Cell Distribution Width 13.8 % (11.5-17.5); White Blood Count 17.5 K/mm3 (4.8-10.8)
[2017-05-10 06:28] LABS: Hemoglobin 14.5 g/dL (14.1-18.0)
[2017-05-10 06:29] LABS: MANUAL DIFFERENTIAL MANUAL DIFFERENTIAL (MANUAL DIFF)
[2017-05-10 06:45] LABS: Lymphocytes % 11 % (10-50); Monocytes % 6 % (2-9); Neutrophils % 77 % (42-76); Platelet Estimate Normal; Total Cells Counted 100
[2017-05-10 06:46] LABS: RBC Morphology Normal
[2017-05-10 06:49] LABS: Amylase 39 U/L (25-125); Lipase 97 u/L (73-393)
[2017-05-10 07:08] LABS: POC Glucose,Bedside 126 mg/dL (70-110)
--- NOTE | 2017-05-10 07:20 | PC.NURSE ---
REPORT GIVEN TO April BANKS W/C
[2017-05-10 08:00] VITALS: BP 136/79; PULSE 101; RESP 16; TEMP 36.7; O2SAT 91
--- NOTE | 2017-05-10 09:37 | HMH.GSPN ---
Subjective Narrative: Patient states that he feels somewhat better. He still does have some abdominal pain when moving around. He is tolerating some clear liquids. Exam Vital signs and Labs for Last 24 Hours: Temp Pulse Resp BP Pulse Ox 98.0 F 101 H 16 136/79 91 L 05/10/17 08:00 05/10/17 08:00 05/10/17 08:00 05/10/17 08:00 05/10/17 08:00 Laboratory Results - last 24 hr 05/09/17 11:09: POC Glucose 148 05/09/17 16:56: POC Glucose 113 05/09/17 22:12: POC Glucose 119 05/10/17 05:01: POC Glucose 126 05/10/17 05:55: Amylase 39 D, Lipase 97 05/10/17 05:55: WBC 17.5 H D, RBC 5.03, Hgb 14.5 D, Hct 45.4, MCV 90.3, MCH 28.9, MCHC 32.0, RDW 13.8, Plt Count 282, MPV 7.8, Neut % (Auto) 83.6 H, Lymph % (Auto) 10.0, [place] % (Auto) 5.8, Eos % (Auto) 0.4, Baso % (Auto) 0.2, Neut # (Auto) 14.6 H, Lymph # (Auto) 1.7, [place] # (Auto) 1.0, Eos # (Auto) 0.1, Baso # (Auto) 0.0, Total Counted 100, Neutrophils % (Manual) 77 H, Band Neutrophils % 6.0, Lymphocytes % (Manual) 11, Monocytes % (Manual) 6, Platelet Estimate Normal, RBC Morphology Normal I & O for Last 24 hours: Intake & Output 05/07/17 05/08/17 05/09/17 05/10/17 11:59 11:59 11:59 11:59 Intake Total 1687 / 1687 2515 / 2515 Output Total 500 / 500 Balance 1687 / 1687 2014 Weight 188 lb 188 lb - Constitutional no acute distress - *Routine Abdominal Exam Present: soft, tenderness Progress Note: A&P (1) Cholecystitis with cholelithiasis Status: Acute Assessment and plan: Appears as though the biliary pancreatitis has shown some resolution by pancreatic enzymes. He does however have significant ongoing tenderness and pain with persistent leukocytosis, albeit improving. Will place the patient on n.p.o. status at this time. Check liver function tests as well as lactate. Possible cholecystectomy today or tomorrow. Current Visit: Yes (2) Gallstone pancreatitis Status: Acute Current Visit: Yes (3) Leukocytosis Status: Acute Current Visit: Yes (4) Elevated lactic acid level Status: Acute Current Visit: Yes
--- NOTE | 2017-05-10 09:40 | P.PN_ITS ---
Subjective Narrative: Patient states that he feels somewhat better. He still does have some abdominal pain when moving around. He is tolerating some clear liquids. Exam Vital signs and Labs for Last 24 Hours: Temp Pulse Resp BP Pulse Ox 98.0 F 101 H 16 136/79 91 L 05/10/17 08:00 05/10/17 08:00 05/10/17 08:00 05/10/17 08:00 05/10/17 08:00 Laboratory Results - last 24 hr 05/09/17 11:09: POC Glucose 148 05/09/17 16:56: POC Glucose 113 05/09/17 22:12: POC Glucose 119 05/10/17 05:01: POC Glucose 126 05/10/17 05:55: Amylase 39 D, Lipase 97 05/10/17 05:55: WBC 17.5 H D, RBC 5.03, Hgb 14.5 D, Hct 45.4, MCV 90.3, MCH 28.9, MCHC 32.0, RDW 13.8, Plt Count 282, MPV 7.8, Neut % (Auto) 83.6 H, Lymph % (Auto) 10.0, [place] % (Auto) 5.8, Eos % (Auto) 0.4, Baso % (Auto) 0.2, Neut # ( Auto) 14.6 H, Lymph # (Auto) 1.7, [place] # (Auto) 1.0, Eos # (Auto) 0.1, Baso # ( Auto) 0.0, Total Counted 100, Neutrophils % (Manual) 77 H, Band Neutrophils % 6.0, Lymphocytes % (Manual) 11, Monocytes % (Manual) 6, Platelet Estimate Normal , RBC Morphology Normal I & O for Last 24 hours: Intake & Output 05/07/17 05/08/17 05/09/17 05/10/17 11:59 11:59 11:59 11:59 Intake Total 1687 / 1687 2515 / 2515 Output Total 500 / 500 Balance 1687 / 1687 2014 Weight 188 lb 188 lb - Constitutional no acute distress - *Routine Abdominal Exam Present: soft, tenderness Progress Note: A&P (1) Cholecystitis with cholelithiasis Status: Acute Assessment and plan: Appears as though the biliary pancreatitis has shown some resolution by pancreatic enzymes. He does however have significant ongoing tenderness and pain with persistent leukocytosis, albeit improving. Will place the patient on n.p.o. status at this time. Check liver function tests as well as lactate. Possible cholecystectomy today or tomorrow. Current Visit: Yes (2) Gallstone pancreatitis Status: Acute Current Visit: Yes (3) Leukocytosis Status: Acute Current Visit: Yes (4) Elevated lactic acid level Status: Acute Current Visit: Yes
[2017-05-10 10:04] LABS: Alanine Aminotransferase 37 U/L (12-78); Albumin Level 2.4 gm/dL (3.4-5.0); Albumin/Globulin Ratio 0.5 (1.1-1.8); Alkaline Phosphatase 91 U/L (46-116); Anion Gap 10.3 mEq/L (5-15); Aspartate Amino Transferase 11 U/L (15-37); Bilirubin,Total 1.2 mg/dL (0.2-1.0); Blood Urea Nitrogen 29 mg/dL (7-18); Calcium 8.5 mg/dL (8.5-10.1); Carbon Dioxide 30 mmol/L (21.0-32.0); Chloride 101 mmol/L (98-107); Creatinine Clearance Estimated 63 mL/min (0-300); Estimated Glomerular Filt Rate 54 ml/min (>60); GFR (African American) 66 ML/MIN (>60); Globulin 4.5 gm/dl (1.3-3.2); Glucose 122 mg/dL (74-106); Potassium 4.3 mmoL/L (3.5-5.1); Sodium 137 mmol/L (136-145); Total Protein,Serum 6.9 gm/dL (6.4-8.2)
[2017-05-10 10:07] LABS: Lactic Acid 0.9 mmol/L (0.4-2.0)
[2017-05-10 11:29] LABS: POC Glucose,Bedside 103 mg/dL (70-110)
[2017-05-10 16:00] VITALS: BP 137/82; PULSE 67; RESP 18; TEMP 36.9; O2SAT 90
[2017-05-10 16:58] LABS: POC Glucose,Bedside 85 mg/dL (70-110)
--- NOTE | 2017-05-10 16:58 | HMH.ACPN2 ---
Internal Medicine - PN: Subj *Date: 05/10/17 *Time: 16:58 Interval history: He is feeling better today. He is very talkative. He is not in a lot of discomfort though he is still sore in the right upper quadrant. He has a rattle in the upper airway that he cannot clear. Dr. Gatica's assessment is reviewed. I understand that the patient will go to surgery tomorrow. Exam Vital signs and Labs for Last 24 Hours: Temp Pulse Resp BP Pulse Ox 98.5 F 67 18 137/82 90 L 05/10/17 16:00 05/10/17 16:00 05/10/17 16:00 05/10/17 16:00 05/10/17 16:00 Laboratory Results - last 24 hr 05/09/17 16:56: POC Glucose 113 05/09/17 22:12: POC Glucose 119 05/10/17 05:01: POC Glucose 126 05/10/17 05:55: Amylase 39 D, Lipase 97 05/10/17 05:55: WBC 17.5 H D, RBC 5.03, Hgb 14.5 D, Hct 45.4, MCV 90.3, MCH 28.9, MCHC 32.0, RDW 13.8, Plt Count 282, MPV 7.8, Neut % (Auto) 83.6 H, Lymph % (Auto) 10.0, [place] % (Auto) 5.8, Eos % (Auto) 0.4, Baso % (Auto) 0.2, Neut # (Auto) 14.6 H, Lymph # (Auto) 1.7, [place] # (Auto) 1.0, Eos # (Auto) 0.1, Baso # (Auto) 0.0, Total Counted 100, Neutrophils % (Manual) 77 H, Band Neutrophils % 6.0, Lymphocytes % (Manual) 11, Monocytes % (Manual) 6, Platelet Estimate Normal, RBC Morphology Normal 05/10/17 09:40: Sodium 137, Potassium 4.3, Chloride 101, Carbon Dioxide 30, Anion Gap 10.3, BUN 29 H, Creatinine 1.30, Estimated Creat Clear 63, Estimated GFR 54 L, Est GFR ( Amer) 66, Glucose 122 H, Calcium 8.5, Total Bilirubin 1.2 H, AST 11 L, ALT 37 D, Alkaline Phosphatase 91, Total Protein 6.9, Albumin 2.4 L D, Globulin 4.5 H, Albumin/Globulin Ratio 0.5 L 05/10/17 09:40: Lactic Acid 0.9 05/10/17 11:10: POC Glucose 103 05/10/17 16:43: POC Glucose 85 Laboratory Tests 05/10/17 05:55 Amylase 39 D Lipase 97 I & O for Last 24 hours: Intake & Output 05/08/17 05/09/17 05/10/17 05/11/17 11:59 11:59 11:59 11:59 Intake Total 1686 / 1686 2515 / 2515 480 / 480 Output Total 500 / 500 Balance 7 / 7 2014 480 / 480 Weight 188 lb 188 lb - Constitutional no acute distress - *Routine Respiratory Exam Present: CTA bilaterally Comments: But there is an upper airway rattle as he breathes. He states he cannot clear that. - *Routine Cardiovascular Exam Present: RRR - *Routine Abdominal Exam Present: soft, tenderness Comments: Slight right upper quadrant tenderness. - *Routine Extremities Exam Absent: edema Assessment and Plan (1) Cholecystitis with cholelithiasis Current visit: Yes Status: Acute Qualifiers: Cholelithiasis location: gallbladder Category: Medical Code(s): K80.10 - Calculus of gallbladder with chronic cholecystitis without obstruction (2) Gallstone pancreatitis Current visit: Yes Status: Acute Category: Medical Code(s): K85.10 - Biliary acute pancreatitis without necrosis or infection (3) Leukocytosis Current visit: Yes Status: Acute Category: Medical Code(s): D72.829 - Elevated white blood cell count, unspecified (4) Elevated lactic acid level Current visit: Yes Status: Acute Category: Medical Code(s): R79.89 - Other specified abnormal findings of blood chemistry - Assessment and plan all Dx Assessment and Plan for all problems:: Continue present treatment. Surgery planned for tomorrow by Dr. Gatica.
--- NOTE | 2017-05-10 17:01 | P.PN_ITS ---
Internal Medicine - PN: Subj *Date: 05/10/17 *Time: 16:58 Interval history: He is feeling better today. He is very talkative. He is not in a lot of discomfort though he is still sore in the right upper quadrant. He has a rattle in the upper airway that he cannot clear. Dr. Gatica's assessment is reviewed. I understand that the patient will go to surgery tomorrow. Exam Vital signs and Labs for Last 24 Hours: Temp Pulse Resp BP Pulse Ox 98.5 F 67 18 137/82 90 L 05/10/17 16:00 05/10/17 16:00 05/10/17 16:00 05/10/17 16:00 05/10/17 16:00 Laboratory Results - last 24 hr 05/09/17 16:56: POC Glucose 113 05/09/17 22:12: POC Glucose 119 05/10/17 05:01: POC Glucose 126 05/10/17 05:55: Amylase 39 D, Lipase 97 05/10/17 05:55: WBC 17.5 H D, RBC 5.03, Hgb 14.5 D, Hct 45.4, MCV 90.3, MCH 28.9, MCHC 32.0, RDW 13.8, Plt Count 282, MPV 7.8, Neut % (Auto) 83.6 H, Lymph % (Auto) 10.0, [place] % (Auto) 5.8, Eos % (Auto) 0.4, Baso % (Auto) 0.2, Neut # ( Auto) 14.6 H, Lymph # (Auto) 1.7, [place] # (Auto) 1.0, Eos # (Auto) 0.1, Baso # ( Auto) 0.0, Total Counted 100, Neutrophils % (Manual) 77 H, Band Neutrophils % 6.0, Lymphocytes % (Manual) 11, Monocytes % (Manual) 6, Platelet Estimate Normal , RBC Morphology Normal 05/10/17 09:40: Sodium 137, Potassium 4.3, Chloride 101, Carbon Dioxide 30, Anion Gap 10.3, BUN 29 H, Creatinine 1.30, Estimated Creat Clear 63, Estimated GFR 54 L, Est GFR ( Amer) 66, Glucose 122 H, Calcium 8.5, Total Bilirubin 1.2 H, AST 11 L, ALT 37 D, Alkaline Phosphatase 91, Total Protein 6.9 , Albumin 2.4 L D, Globulin 4.5 H, Albumin/Globulin Ratio 0.5 L 05/10/17 09:40: Lactic Acid 0.9 05/10/17 11:10: POC Glucose 103 05/10/17 16:43: POC Glucose 85 Laboratory Tests 05/10/17 05:55 Amylase 39 D Lipase 97 I & O for Last 24 hours: Intake & Output 05/08/17 05/09/17 05/10/17 05/11/17 11:59 11:59 11:59 11:59 Intake Total 1686 / 1686 2515 / 2515 480 / 480 Output Total 500 / 500 Balance 7 / 7 2014 480 / 480 Weight 188 lb 188 lb - Constitutional no acute distress - *Routine Respiratory Exam Present: CTA bilaterally Comments: But there is an upper airway rattle as he breathes. He states he cannot clear that. - *Routine Cardiovascular Exam Present: RRR - *Routine Abdominal Exam Present: soft, tenderness Comments: Slight right upper quadrant tenderness. - *Routine Extremities Exam Absent: edema Assessment and Plan (1) Cholecystitis with cholelithiasis Current visit: Yes Status: Acute Qualifiers: Cholelithiasis location: gallbladder Category: Medical Code(s): K80.10 - Calculus of gallbladder with chronic cholecystitis without obstruction (2) Gallstone pancreatitis Current visit: Yes Status: Acute Category: Medical Code(s): K85.10 - Biliary acute pancreatitis without necrosis or infection (3) Leukocytosis Current visit: Yes Status: Acute Category: Medical Code(s): D72.829 - Elevated white blood cell count, unspecified (4) Elevated lactic acid level Current visit: Yes Status: Acute Category: Medical Code(s): R79.89 - Other specified abnormal findings of blood chemistry - Assessment and plan all Dx Assessment and Plan for all problems:: Continue present treatment. Surgery planned for tomorrow by Dr. Gatica.
--- NOTE | 2017-05-10 18:15 | PC.NURSE ---
faint crackles in bases. o2 sat have been around 90 all shift and pt has phlegm in throat and states he is unable to cough up. md is aware. urine is brown in color and md was on floor and notified of this too. surgery tomorrow so pt has been advised to have nothing by mouth after midnight. pt states pain still in right abdomen throughout shift prn med given per mar. call light in reach. will continue to monitor pt condition.
--- NOTE | 2017-05-10 19:32 | PC.NURSE ---
report given to Tiffanie aldana rn
[2017-05-10 20:00] VITALS: BP 125/65; PULSE 96; RESP 18; TEMP 37.4; O2SAT 96
[2017-05-11] VITALS (22 sets, daily range): BP systolic 106–166; BP diastolic 56–85; PULSE 80–95; RESP 12–20; TEMP 36.6–43; O2SAT 89–97
--- NOTE | 2017-05-11 | XR_ITS ---
XR cholangiogram operative CLINICAL INDICATION: Cholelithiasis ITS.REASON: STONES ORDERING PHYSICIAN: Ralf Aylaa MD PATIENT AGE: 72 years Fluoroscopy time: 11 seconds COMPARISON: None FINDINGS: A single image is submitted with the C-arm demonstrating contrast injected into the cystic duct with a normal caliber common bile duct and good flow of contrast into the duodenum. The proximal aspect of the common bile duct there is a lucency. This could represent a common duct stone or overlying artifact from incomplete filling or overlying bowel. These correlate with fluoroscopic findings. The bile duct is not dilated proximal to this region. The distal common bile duct has an unremarkable appearance. IMPRESSION: Small lucency overlies the proximal aspect of the common bile duct and could be due to a common duct stone versus artifact. Please correlate with fluoroscopic findings.
[2017-05-11 01:50] LABS: POC Glucose,Bedside 107 mg/dL (70-110)
--- NOTE | 2017-05-11 04:59 | PC.NURSE ---
C/O PAIN IN R PORTION OF ABDOMEN, DESCRIBES PAIN SHARP, RATING 10/10 THE FIRST TIME MEDICATED WITH PRN PAIN MEDICATION, ON SECOND ADMINISTRATION PT RATED 7/10. ON REASSESSMENTS PT NOTED SLEEPING. ABDOMEN FLAT AND SOFT PER PALPATION. BOWEL SOUNDS NOTED ACTIVE IN ALL QUADS. SCATTERED FINE CRACKLES AUSCULTATED ON ASSESSMENT. VSS. WILL CONTINUE TO MONITOR.
--- NOTE | 2017-05-11 05:07 | PC.NURSE ---
TOLERATED CLEAR LIQUID DIET WELL. MAINTAINED NPO DIET AFTER 0000.
[2017-05-11 06:25] LABS: POC Glucose,Bedside 95 mg/dL (70-110)
--- NOTE | 2017-05-11 07:21 | PC.NURSE ---
REPORT GIVEN TO Antonio COLLIER W/C
--- NOTE | 2017-05-11 07:37 | P.PN_ITS ---
Subjective Patient reports: no new complaints, still having pain Exam Vital signs and Labs for Last 24 Hours: Temp Pulse Resp BP Pulse Ox 99.1 F 94 H 20 106/58 91 L 05/11/17 04:00 05/11/17 04:00 05/11/17 04:00 05/11/17 04:00 05/11/17 04:00 Laboratory Results - last 24 hr 05/10/17 09:40: Sodium 137, Potassium 4.3, Chloride 101, Carbon Dioxide 30, Anion Gap 10.3, BUN 29 H, Creatinine 1.30, Estimated Creat Clear 63, Estimated GFR 54 L, Est GFR ( Amer) 66, Glucose 122 H, Calcium 8.5, Total Bilirubin 1.2 H, AST 11 L, ALT 37 D, Alkaline Phosphatase 91, Total Protein 6.9 , Albumin 2.4 L D, Globulin 4.5 H, Albumin/Globulin Ratio 0.5 L 05/10/17 09:40: Lactic Acid 0.9 05/10/17 11:10: POC Glucose 103 05/10/17 16:43: POC Glucose 85 05/10/17 23:49: POC Glucose 107 05/11/17 05:13: POC Glucose 95 I & O for Last 24 hours: Intake & Output 05/08/17 05/09/17 05/10/17 05/11/17 11:59 11:59 11:59 11:59 Intake Total 1687 / 1687 2515 / 2515 2555 / 2555 Output Total 500 / 500 950 / 950 Balance 1687 / 1687 2014 1605 / 1605 Weight 188 lb 188 lb - *Routine Abdominal Exam Present: soft, tenderness, guarding Progress Note: A&P (1) Cholecystitis with cholelithiasis Status: Acute Current Visit: Yes (2) Gallstone pancreatitis Status: Acute Assessment and plan: Labs have shown essentially normalization yesterday. Plan for cholecystectomy with cholangiogram later today. Current Visit: Yes (3) Leukocytosis Status: Acute Current Visit: Yes (4) Elevated lactic acid level Status: Acute Current Visit: Yes
--- NOTE | 2017-05-11 08:26 | P.PN_ITS ---
Internal Medicine - PN: Subj *Date: 05/11/17 *Time: 08:23 Interval history: This n.p.o. for surgery today; plan is for cholecystectomy with cholangiogram. Patient states he did not sleep due to the pain. Denies nausea. He is voiding without difficulty. Denies chest pain shortness of breath. Exam Vital signs and Labs for Last 24 Hours: Temp Pulse Resp BP Pulse Ox 98.6 F 93 H 20 124/74 91 L 05/11/17 07:36 05/11/17 07:36 05/11/17 07:36 05/11/17 07:36 05/11/17 07:36 Laboratory Results - last 24 hr 05/10/17 09:40: Sodium 137, Potassium 4.3, Chloride 101, Carbon Dioxide 30, Anion Gap 10.3, BUN 29 H, Creatinine 1.30, Estimated Creat Clear 63, Estimated GFR 54 L, Est GFR ( Amer) 66, Glucose 122 H, Calcium 8.5, Total Bilirubin 1.2 H, AST 11 L, ALT 37 D, Alkaline Phosphatase 91, Total Protein 6.9 , Albumin 2.4 L D, Globulin 4.5 H, Albumin/Globulin Ratio 0.5 L 05/10/17 09:40: Lactic Acid 0.9 05/10/17 11:10: POC Glucose 103 05/10/17 16:43: POC Glucose 85 05/10/17 23:49: POC Glucose 107 05/11/17 05:13: POC Glucose 95 I & O for Last 24 hours: Intake & Output 05/08/17 05/09/17 05/10/17 05/11/17 11:59 11:59 11:59 11:59 Intake Total 1687 / 1687 2515 / 2515 2555 / 2555 Output Total 500 / 500 950 / 950 Balance 1687 / 1687 2014 1605 / 1605 Weight 188 lb 188 lb - Constitutional no acute distress Comments: Appears comfortable lying in bed. Family at bedside - *Routine HEENT Exam Comments: Hard of hearing - *Routine Respiratory Exam Present: CTA bilaterally (Anteriorly and posteriorly) - *Routine Cardiovascular Exam Present: RRR - *Routine Abdominal Exam Present: soft, normoactive bowel sounds, tenderness (Upper abdomen and right mid and lower quadrants) - *Routine Extremities Exam Absent: edema, calf tenderness - *Routine Neurological Exam Present: alert, oriented X3 Assessment and Plan (1) Cholecystitis with cholelithiasis Current visit: Yes Status: Acute Qualifiers: Cholelithiasis location: gallbladder Category: Medical Code(s): K80.10 - Calculus of gallbladder with chronic cholecystitis without obstruction (2) Gallstone pancreatitis Current visit: Yes Status: Acute Category: Medical Code(s): K85.10 - Biliary acute pancreatitis without necrosis or infection (3) Leukocytosis Current visit: Yes Status: Acute Category: Medical Code(s): D72.829 - Elevated white blood cell count, unspecified (4) Elevated lactic acid level Current visit: Yes Status: Acute Category: Medical Code(s): R79.89 - Other specified abnormal findings of blood chemistry - Assessment and plan all Dx Assessment and Plan for all problems:: Laboratory data has improved. Has been seen by Dr. Gatica this a.m. Surgery is planned for this a.m.
--- NOTE | 2017-05-11 09:25 | P.PN_ITS ---
Internal Medicine - PN: Subj *Date: 05/11/17 *Time: 09:25 Exam Vital signs and Labs for Last 24 Hours: Temp Pulse Resp BP Pulse Ox 98.6 F 93 H 20 124/74 91 L 05/11/17 07:36 05/11/17 07:36 05/11/17 07:36 05/11/17 07:36 05/11/17 07:36 Laboratory Results - last 24 hr 05/10/17 09:40: Sodium 137, Potassium 4.3, Chloride 101, Carbon Dioxide 30, Anion Gap 10.3, BUN 29 H, Creatinine 1.30, Estimated Creat Clear 63, Estimated GFR 54 L, Est GFR ( Amer) 66, Glucose 122 H, Calcium 8.5, Total Bilirubin 1.2 H, AST 11 L, ALT 37 D, Alkaline Phosphatase 91, Total Protein 6.9 , Albumin 2.4 L D, Globulin 4.5 H, Albumin/Globulin Ratio 0.5 L 05/10/17 09:40: Lactic Acid 0.9 05/10/17 11:10: POC Glucose 103 05/10/17 16:43: POC Glucose 85 05/10/17 23:49: POC Glucose 107 05/11/17 05:13: POC Glucose 95 I & O for Last 24 hours: Intake & Output 05/08/17 05/09/17 05/10/17 05/11/17 23:59 23:59 23:59 23:59 Intake Total 360 / 360 2595 / 2595 3284 / 3284 518 / 518 Output Total 500 / 500 950 / 950 Balance 360 / 360 2095 / 2095 2334 / 2334 518 / 518 Weight 85.275 kg 85.275 kg Assessment and Plan (1) Cholecystitis with cholelithiasis Current visit: Yes Status: Acute Qualifiers: Cholelithiasis location: gallbladder Category: Medical Code(s): K80.10 - Calculus of gallbladder with chronic cholecystitis without obstruction (2) Gallstone pancreatitis Current visit: Yes Status: Acute Category: Medical Code(s): K85.10 - Biliary acute pancreatitis without necrosis or infection (3) Leukocytosis Current visit: Yes Status: Acute Category: Medical Code(s): D72.829 - Elevated white blood cell count, unspecified (4) Elevated lactic acid level Current visit: Yes Status: Acute Category: Medical Code(s): R79.89 - Other specified abnormal findings of blood chemistry The patient's infection will respond to the chosen ABx?: Yes Is the patient receiving the right drug, dose, and route?: Yes Could a more targeted ABx be ordered?: No (SURGERY TODAY)
--- NOTE | 2017-05-11 12:28 | P.PN_ITS ---
[facility] Anesthesia Checklist - Structural Data Admitted From: Home Planned Operative Procedure/s: louis reagane Consent for Planned Operative Procedure(s) Verified: Yes Verified Documents: Surgical Consent - Airway Assessment C-Spine Mobility Assessed: Yes TMJ Mobility Assessed: Yes Dentition: Edentulous - Neurological Assessment Level of Consciousness: Awake, Alert - Anesthesia Plan Anesthesia Risk discussed: Yes Anesthesia Plan: Verified ASA Class: II Anesthesia Type: General [facility] Anesthesia HX I have reviewed the patient's past medical history: Yes Medical History: Denies:: Cancer, Diabetes Mellitus Type 1, Diabetes Mellitus Type 2, Internal Pacemaker, MRSA Other Surgeries: No: Pacemaker Amputation: No Fractures: No *Family Hx:: Asthma, Cancer, Coronary Artery Disease, Diabetes, Heart Attack, Hyperlipidemia, Hypertension, Kidney Disease, Stroke
--- NOTE | 2017-05-11 16:43 | HMH.OPNOTE ---
Date of procedure: 05/11/17 Pre-op Diagnosis:: Acute cholecystitis Resolved biliary pancreatitis Post-op Diagnosis:: Same Procedure performed:: 1. Diagnostic laparoscopy 2. Open cholecystectomy with intraoperative cholangiogram Surgeon:: Jassi Gatica MD Truck Rental Clerk(s):: Jennifer Montez Anesthesia: MONISHA Estimated blood loss (mL): 1,200 Clinical Note:: Patient is a 72-year-old white male. He had presented to the emergency department a few days ago with right lower quadrant abdominal pain. Blood work at that time revealed elevated amylase and lipase consistent with pancreatitis as well as slightly elevated bilirubin and leukocytosis. CT scan revealed findings consistent with cholecystitis. He did have an ultrasound revealing multiple gallstones. He was admitted for inpatient management. Surgical consultation was obtained. Patient was started on intravenous antibiotics for treatment of cholecystitis and pancreatitis. His pancreatitis resolved but the patient had persistent leukocytosis and was continued on antibiotics. This showed improvement. He did have some findings of peritonitis but was stable. Plan was made for cholecystectomy with cholangiogram. Operative findings:: Patient had severely acutely inflamed gallbladder with full-thickness necrosis with some patchy liquefied necrosis with findings consistent with perforation of the gallbladder with bilious liquid within the abdomen. Gallbladder was packed full of multiple gallstones. Operative note:: Consent was obtained and patient was taken to the operating room. He was given additional preoperative intravenous antibiotic. In the operating room he was placed in a supine position. General anesthesia was induced via endotracheal tube. Abdomen was prepped and draped in the standard surgical fashion. Subumbilical skin incision was made. While performing abdominal wall lift Veress needle was inserted. CO2 pneumoperitoneum was achieved to 15 mmHg. 10/11 mm optical trocar was inserted at the umbilicus. Intraperitoneal contents were visualized. He was immediately noted to have some bilious liquid in the right perihepatic space and in the right lower quadrant. He was positioned in reverse Trendelenburg with left side. A couple of 5 mm trochars were inserted in the right upper abdomen. 10 mm trocar was inserted in the epigastrium. Initially visualization of the gallbladder was unable. There were omental adhesions to the gallbladder essentially forming somewhat of a phlegmon. These were swept inferiorly exposing the gallbladder which was severely acutely inflamed with evidence of necrosis consistent with significant necrotizing cholecystitis with some portions of liquefied necrosis. Gallbladder was grasped and retracted anteriorly. Dissection was carried out. There was an incredibly intense inflammatory response in the right upper quadrant. Prolonged dissection was carried out and anatomy was difficult to determine. Dissection was unsuccessful. Decision was made to convert to an open procedure. Patient was positioned supinely. Right subcostal incision was made. Dissection was carried down through subcutaneous tissues and fascial layers using electrocautery. Exposure was achieved. Gallbladder was dissected free and a dome down retrograde fashion mostly using blunt dissection as it was necrotic and friable. There was some oozing from the and electrocautery was used. Liver was packed with a Gelfoam followed by laparotomy pads for some time to obtain hemostasis. Additional dissection was carried out mostly using blunt dissection. It is difficult to determine the site of the neck of the gallbladder and ductal anatomy. The already partially opened gallbladder was opened somewhat at its fundus. It was packed full of multiple moderate size gallstones and these were removed using the stone scoop. Gallbladder was irrigated and remaining debris was removed. Dissection was then
--- NOTE | 2017-05-11 16:46 | P.OP_ITS ---
Date of procedure: 05/11/17 Pre-op Diagnosis:: Acute cholecystitis Resolved biliary pancreatitis Post-op Diagnosis:: Same Procedure performed:: 1. Diagnostic laparoscopy 2. Open cholecystectomy with intraoperative cholangiogram Surgeon:: Jassi Gatica MD Stock Crane Operator(s):: Jennifer Montez Anesthesia: MONISHA Estimated blood loss (mL): 1,200 Clinical Note:: Patient is a 72-year-old white male. He had presented to the emergency department a few days ago with right lower quadrant abdominal pain. Blood work at that time revealed elevated amylase and lipase consistent with pancreatitis as well as slightly elevated bilirubin and leukocytosis. CT scan revealed findings consistent with cholecystitis. He did have an ultrasound revealing multiple gallstones. He was admitted for inpatient management. Surgical consultation was obtained. Patient was started on intravenous antibiotics for treatment of cholecystitis and pancreatitis. His pancreatitis resolved but the patient had persistent leukocytosis and was continued on antibiotics. This showed improvement. He did have some findings of peritonitis but was stable. Plan was made for cholecystectomy with cholangiogram. Operative findings:: Patient had severely acutely inflamed gallbladder with full-thickness necrosis with some patchy liquefied necrosis with findings consistent with perforation of the gallbladder with bilious liquid within the abdomen. Gallbladder was packed full of multiple gallstones. Operative note:: Consent was obtained and patient was taken to the operating room. He was given additional preoperative intravenous antibiotic. In the operating room he was placed in a supine position. General anesthesia was induced via endotracheal tube. Abdomen was prepped and draped in the standard surgical fashion. Subumbilical skin incision was made. While performing abdominal wall lift Veress needle was inserted. CO2 pneumoperitoneum was achieved to 15 mmHg. 10/ 11 mm optical trocar was inserted at the umbilicus. Intraperitoneal contents were visualized. He was immediately noted to have some bilious liquid in the right perihepatic space and in the right lower quadrant. He was positioned in reverse Trendelenburg with left side. A couple of 5 mm trochars were inserted in the right upper abdomen. 10 mm trocar was inserted in the epigastrium. Initially visualization of the gallbladder was unable. There were omental adhesions to the gallbladder essentially forming somewhat of a phlegmon. These were swept inferiorly exposing the gallbladder which was severely acutely inflamed with evidence of necrosis consistent with significant necrotizing cholecystitis with some portions of liquefied necrosis. Gallbladder was grasped and retracted anteriorly. Dissection was carried out. There was an incredibly intense inflammatory response in the right upper quadrant. Prolonged dissection was carried out and anatomy was difficult to determine. Dissection was unsuccessful. Decision was made to convert to an open procedure. Patient was positioned supinely. Right subcostal incision was made. Dissection was carried down through subcutaneous tissues and fascial layers using electrocautery. Exposure was achieved. Gallbladder was dissected free and a dome down retrograde fashion mostly using blunt dissection as it was necrotic and friable. There was some oozing from the and electrocautery was used. Liver was packed with a Gelfoam followed by laparotomy pads for some time to obtain hemostasis. Additional dissection was carried out mostly using blunt dissection. It is difficult to determine the site of the neck of the gallbladder and ductal anatomy. The al
--- NOTE | 2017-05-11 16:52 | HMH.ANESI ---
[facility] Anesthesia Record Part I Intake, IV Amount: 3,000 Estimated blood loss (mL): 1,200 Urine output (mL): 0 Blood Pressure: 166/83 SaO2: 92 Pulse Rate: 92 Respiratory Rate: 12 Temperature: 99.3 F Patient is:: Awake, Stable Stable to PACU at:: 16:45
--- NOTE | 2017-05-11 16:53 | P.PN_ITS ---
[facility] Anesthesia Record Part II Discharge Time: 17:15 Destination: floor PACU nurse assessment reviewed?: Yes Patient Condition:: Good Anesthesia Complications:: None
--- NOTE | 2017-05-11 17:48 | SUR.OPER ---
Addendum entered by Peg Pérez RN 05/11/17 17:58: Original Note: 1405-Incision for open cholecystectomy made at this time. All counts correct and verified prior to incision per Monae, KITA and RUPESH Madison. 1445-Family updated per RUPESH Madison 1455-3 lap sponges inserted into abdomen per 1544-3 lap sponges removed from abdomen per 1556-1 lap sponge inserted into abdomen per 1614-1 lap sponge removed from abdomen per
[2017-05-11 18:01] LABS: POC Glucose,Bedside 125 mg/dL (70-110)
--- NOTE | 2017-05-11 18:08 | PC.NURSE ---
Pt voided 200ml of dk ophelia urine.
--- NOTE | 2017-05-11 18:10 | PC.NURSE ---
9695-Pt restless and uncooperative with care at this time. Pt frequently removing O2, sats stable. Encouraging pt to deep breathe and cough. Pt reports he does not have urge to void at this time. Will continue to monitor.
--- NOTE | 2017-05-11 18:15 | PC.NURSE ---
1705-Pt refusing O2 at this time, monitoring O2 sats. Pt denies difficulty breathing or SOA. PT restless and uncooperative with care. Pt denies need to void. Pt denies nausea or pain and reports, I'll be okay. Will continue to monitor.
--- NOTE | 2017-05-11 18:24 | PC.NURSE ---
1715-Pt becoming more cooperative with care. O2 @ 2l/nc in place, sats improving. Pt coughed at this time, LS improving-less rhonchi noted. Pt denies urge to void. Notified pt that MD ordered for pt to recieve catheter if was unable to void. Pt refused to attempt to void per urinal and refused welch catheter at this time. MD notified, ordered if pt unable to void by 1900 f/c must be inserted. Pt notified. Detailed report called to RUPESH Martin. Pt stable.
--- NOTE | 2017-05-11 18:30 | PC.NURSE ---
1720-Pt transported to 2nd floor room 217 via hospital bed w/rails up per RUPESH Allen and RUPESH Madison. Pt left in care of RUPESH Martin with bed locked in lowest position. Family at bedside. MD at bedside. VSS. Pt stable.
--- NOTE | 2017-05-11 19:14 | PC.NURSE ---
report given to rustam hamilton
[2017-05-11 20:53] LABS: POC Glucose,Bedside 120 mg/dL (70-110)
[2017-05-12] VITALS (13 sets, daily range): BP systolic 103–143; BP diastolic 48–82; PULSE 80–110; RESP 16–22; TEMP 36.7–37.7; O2SAT 92–100
--- NOTE | 2017-05-12 02:15 | PC.NURSE ---
ANDREW drain bloody drainage approximately 50mls, incision dressings x 2 remain CDI. bowel sounds slightly hypo and audible. Vital signs wnl, afebrile, and NSR on tele. Pain meds given per request according to mar, pt reports pain medication takes it down, but it never goes away. Discussed pain r/t condition and surgery with pain goal to be tolerable. Makes needs known, remained safe with nothing acute to report.
[2017-05-12 04:53] LABS: POC Glucose,Bedside 125 mg/dL (70-110)
[2017-05-12 06:39] LABS: Eosinophils % 0.1 % (0.1-12.0); Hematocrit 32.9 % (42.0-52.0); Hemoglobin 10.5 g/dL (14.1-18.0); Lymphocytes # 1.4 K/mm3 (0.7-4.5); Mean Corpuscular Hemoglobin 28.6 pg (27.0-31.2); Mean Corpuscular Volume 89.2 fl (80-94); Mean Platelet Volume 7.6 fl (7.4-10.4); Monocytes # 0.7 K/mm3 (0.1-1.0); Monocytes % 5.3 % (1.7-9.3); Neutrophils # 10.3 K/mm3 (1.8-7.8); Neutrophils % 83.6 % (37.0-80.0); Platelet Count 343 K/mm3 (142-424); Red Blood Count 3.69 M/mm3 (4.60-6.20); Red Cell Distribution Width 13.7 % (11.5-17.5); White Blood Count 12.4 K/mm3 (4.8-10.8)
[2017-05-12 06:52] LABS: Alanine Aminotransferase 69 U/L (12-78); Albumin Level 1.7 gm/dL (3.4-5.0); Albumin/Globulin Ratio 0.4 (1.1-1.8); Alkaline Phosphatase 79 U/L (46-116); Anion Gap 10.9 mEq/L (5-15); Aspartate Amino Transferase 105 U/L (15-37); Bilirubin,Total 0.6 mg/dL (0.2-1.0); Blood Urea Nitrogen 19 mg/dL (7-18); Carbon Dioxide 27 mmol/L (21.0-32.0); Chloride 106 mmol/L (98-107); Creatinine Clearance Estimated 89 mL/min (0-300); Creatinine,Serum 1.01 mg/dL (0.70-1.30); Estimated Glomerular Filt Rate 73 ml/min (>60); GFR (African American) 88 ML/MIN (>60); Glucose 143 mg/dL (74-106); Potassium 3.9 mmoL/L (3.5-5.1); Sodium 140 mmol/L (136-145); Total Protein,Serum 5.7 gm/dL (6.4-8.2)
--- NOTE | 2017-05-12 07:11 | PC.NURSE ---
Shift report given to Madison Pritchard RN leaving pt safe and stable.
--- NOTE | 2017-05-12 07:16 | P.PN_ITS ---
Subjective Patient reports: feels better Narrative: Patient states that he feels better. No nausea. Voiding without difficulty. Had a very long conversation with the patient regarding his oxygen. He states that he feels that this has helped him sleep and he wonders if he needs oxygen once discharged. Also had a discussion with the patient regarding his questions over bowel movements. Exam Vital signs and Labs for Last 24 Hours: Temp Pulse Resp BP Pulse Ox 98.5 F 80 20 143/82 93 L 05/12/17 00:15 05/12/17 04:00 05/12/17 00:15 05/12/17 00:15 05/12/17 04:49 Laboratory Results - last 24 hr 05/11/17 17:52: POC Glucose 125 05/11/17 20:46: POC Glucose 120 05/12/17 04:40: POC Glucose 125 05/12/17 05:35: WBC 12.4 H D, RBC 3.69 L D, Hgb 10.5 L, Hct 32.9 L, MCV 89.2, MCH 28.6, MCHC 32.0, RDW 13.7, Plt Count 343, MPV 7.6, Neut % (Auto) 83.6 H, Lymph % (Auto) 11.0, [place] % (Auto) 5.3, Eos % (Auto) 0.1, Baso % (Auto) 0.0 L, Neut # (Auto) 10.3 H, Lymph # (Auto) 1.4, [place] # (Auto) 0.7, Eos # (Auto) 0.0, Baso # (Auto) 0.0 05/12/17 05:35: Sodium 140, Potassium 3.9, Chloride 106, Carbon Dioxide 27, Anion Gap 10.9, BUN 19 H D, Creatinine 1.01 D, Estimated Creat Clear 89, Estimated GFR 73, Est GFR ( Amer) 88 D, Glucose 143 H, Total Bilirubin 0.6, AST 105 H D, ALT 69 D, Alkaline Phosphatase 79, Total Protein 5.7 L, Albumin 1.7 L, Globulin 4.0 H, Albumin/Globulin Ratio 0.4 L I & O for Last 24 hours: Intake & Output 05/09/17 05/10/17 05/11/17 05/12/17 11:59 11:59 11:59 11:59 Intake Total 1687 / 1687 2515 / 2515 2555 / 2555 4711 / 4711 Output Total 500 / 500 950 / 950 710 / 710 Balance 1687 / 1687 2014 1605 / 1605 4001 / 4001 Weight 188 lb 206 lb 5 oz - *Routine Abdominal Exam Present: soft, surgical scars Comments: Dressings intact. ANDREW with serosanguineous drainage. Progress Note: A&P (1) Cholecystitis with cholelithiasis Status: Acute Assessment and plan: May transfer out of stepdown today. Closely monitor hemoglobin and hematocrit due to operative blood loss. Liver function tests within reasonable limits. Will start a clear liquid diet today. Continue intravenous antibiotics. Current Visit: Yes (2) Gallstone pancreatitis Status: Acute Current Visit: Yes (3) Leukocytosis Status: Acute Current Visit: Yes (4) Elevated lactic acid level Status: Acute Current Visit: Yes
--- NOTE | 2017-05-12 07:29 | PC.NURSE ---
asked dr. odonnell on morning rounds if patient needed to remain stepdown or if she could become a floor patient. stated it was okay to transfer her to the floor.
[2017-05-12 07:32] LABS: Calcium 7.6 mg/dL (8.5-10.1)
--- NOTE | 2017-05-12 09:38 | HMH.ACPN2 ---
Internal Medicine - PN: Subj *Date: 05/12/17 *Time: 09:38 Interval history: He is stable alert and oriented day 1 postop. Signs are stable. Abdomen is soft. Lungs are clear though he still has the rattle in his respirations. He has the Flotron in place on his legs. Exam Vital signs and Labs for Last 24 Hours: Temp Pulse Resp BP Pulse Ox 98.1 F 84 18 135/75 98 05/12/17 08:00 05/12/17 08:00 05/12/17 08:00 05/12/17 08:00 05/12/17 08:30 Laboratory Results - last 24 hr 05/11/17 17:52: POC Glucose 125 05/11/17 20:46: POC Glucose 120 05/12/17 04:40: POC Glucose 125 05/12/17 05:35: WBC 12.4 H D, RBC 3.69 L D, Hgb 10.5 L, Hct 32.9 L, MCV 89.2, MCH 28.6, MCHC 32.0, RDW 13.7, Plt Count 343, MPV 7.6, Neut % (Auto) 83.6 H, Lymph % (Auto) 11.0, [place] % (Auto) 5.3, Eos % (Auto) 0.1, Baso % (Auto) 0.0 L, Neut # (Auto) 10.3 H, Lymph # (Auto) 1.4, [place] # (Auto) 0.7, Eos # (Auto) 0.0, Baso # (Auto) 0.0 05/12/17 05:35: Sodium 140, Potassium 3.9, Chloride 106, Carbon Dioxide 27, Anion Gap 10.9, BUN 19 H D, Creatinine 1.01 D, Estimated Creat Clear 89, Estimated GFR 73, Est GFR ( Amer) 88 D, Glucose 143 H, Calcium 7.6 L D, Total Bilirubin 0.6, AST 105 H D, ALT 69 D, Alkaline Phosphatase 79, Total Protein 5.7 L, Albumin 1.7 L, Globulin 4.0 H, Albumin/Globulin Ratio 0.4 L I & O for Last 24 hours: Intake & Output 05/09/17 05/10/17 05/11/17 05/12/17 11:59 11:59 11:59 11:59 Intake Total 1687 / 1687 2515 / 2515 2555 / 2555 4711 / 4711 Output Total 500 / 500 950 / 950 1110 / 1110 Balance 1687 / 1687 2014 1605 / 1605 3601 / 3601 Weight 188 lb 206 lb 5 oz - Constitutional no acute distress - *Routine HEENT Exam Eye: Present: PERRL. Absent: conjunctival icterus - *Routine Respiratory Exam Present: CTA bilaterally Comments: Upper airway sounds are present. - *Routine Cardiovascular Exam Present: RRR - *Routine Abdominal Exam Present: soft Assessment and Plan (1) Cholecystitis with cholelithiasis Current visit: Yes Status: Acute Qualifiers: Cholelithiasis location: gallbladder Category: Medical Code(s): K80.10 - Calculus of gallbladder with chronic cholecystitis without obstruction (2) Gallstone pancreatitis Current visit: Yes Status: Acute Category: Medical Code(s): K85.10 - Biliary acute pancreatitis without necrosis or infection (3) Leukocytosis Current visit: Yes Status: Acute Category: Medical Code(s): D72.829 - Elevated white blood cell count, unspecified (4) Elevated lactic acid level Current visit: Yes Status: Acute Category: Medical Code(s): R79.89 - Other specified abnormal findings of blood chemistry - Assessment and plan all Dx Assessment and Plan for all problems:: See orders. Nebulizer treatment with DuoNeb ordered.
[2017-05-12 11:50] LABS: POC Glucose,Bedside 123 mg/dL (70-110)
[2017-05-12 16:32] LABS: POC Glucose,Bedside 104 mg/dL (70-110)
--- NOTE | 2017-05-12 17:34 | PC.NURSE ---
patient has had a good day. minimum complaints of pain. has been sitting on side of bed at times, and pulling self up in bed dressings remain c/d/i. bowel sounds hypo, tolerating clear liquids well. vss. will continue to monitor
--- NOTE | 2017-05-12 18:47 | PC.NURSE ---
hillary drain had 100ml out, has been stripped as needed
--- NOTE | 2017-05-12 20:07 | PC.NURSE ---
NURSE NOTIFIED OF PTS TEMP
[2017-05-12 22:28] LABS: POC Glucose,Bedside 99 mg/dL (70-110)
[2017-05-13] VITALS (15 sets, daily range): BP systolic 110–150; BP diastolic 55–108; PULSE 82–117; RESP 18–22; TEMP 36.7–36.9; O2SAT 84–96
[2017-05-13 06:33] LABS: POC Glucose,Bedside 97 mg/dL (70-110)
--- NOTE | 2017-05-13 06:38 | PC.NURSE ---
Approx. 0300 patient complained of not being able to breathe. VS. B/P 136/78 HR: 99 RR:20. NO sign or symptoms of acute distress noted at this time. Had patient use IS and educated on the need to use this frequently to lower risk of respiratory complications.
--- NOTE | 2017-05-13 08:09 | HMH.ACPN2 ---
Internal Medicine - PN: Subj *Date: 05/13/17 *Time: 08:09 Interval history: Patient states he does not feel well today. He states his pain is keeping him from moving around. States he would like to speak with a surgeon about exactly what was done during his cholecystectomy. Exam Vital signs and Labs for Last 24 Hours: Temp Pulse Resp BP Pulse Ox 98.4 F 88 22 141/71 93 L 05/13/17 04:00 05/13/17 06:17 05/13/17 04:00 05/13/17 04:00 05/13/17 06:17 Laboratory Results - last 24 hr 05/12/17 11:08: POC Glucose 123 05/12/17 16:08: POC Glucose 104 05/12/17 21:38: POC Glucose 99 05/13/17 04:27: POC Glucose 97 I & O for Last 24 hours: Intake & Output 05/10/17 05/11/17 05/12/17 05/13/17 11:59 11:59 11:59 11:59 Intake Total 4711 / 4711 3336 / 3336 Output Total 1310 / 1310 1200 / 1200 Balance 3401 / 3401 2136 / 2136 Weight 206 lb 5 oz 194 lb 1 oz - Constitutional no acute distress - *Routine Respiratory Exam Present: rhonchi (bilaterally) - *Routine Cardiovascular Exam Present: RRR - *Routine Abdominal Exam Present: soft, normoactive bowel sounds, tenderness (around incision sites, dressings with drainage, ANDREW drain in place) - *Routine Extremities Exam Absent: edema Assessment and Plan (1) Cholecystitis with cholelithiasis Current visit: Yes Status: Acute Qualifiers: Cholelithiasis location: gallbladder Category: Medical Code(s): K80.10 - Calculus of gallbladder with chronic cholecystitis without obstruction (2) Gallstone pancreatitis Current visit: Yes Status: Acute Category: Medical Code(s): K85.10 - Biliary acute pancreatitis without necrosis or infection (3) Leukocytosis Current visit: Yes Status: Acute Category: Medical Code(s): D72.829 - Elevated white blood cell count, unspecified (4) Elevated lactic acid level Current visit: Yes Status: Acute Category: Medical Code(s): R79.89 - Other specified abnormal findings of blood chemistry - Assessment and plan all Dx Assessment and Plan for all problems:: Surgery to continue to follow.
[2017-05-13 08:10] LABS: Alanine Aminotransferase 44 U/L (12-78); Albumin Level 1.8 gm/dL (3.4-5.0); Albumin/Globulin Ratio 0.5 (1.1-1.8); Alkaline Phosphatase 76 U/L (46-116); Anion Gap 8.4 mEq/L (5-15); Aspartate Amino Transferase 43 U/L (15-37); Bilirubin,Total 0.5 mg/dL (0.2-1.0); Blood Urea Nitrogen 13 mg/dL (7-18); Calcium 7.6 mg/dL (8.5-10.1); Carbon Dioxide 30 mmol/L (21.0-32.0); Chloride 104 mmol/L (98-107); Creatinine Clearance Estimated 84 mL/min (0-300); Creatinine,Serum 0.84 mg/dL (0.70-1.30); Estimated Glomerular Filt Rate 90 ml/min (>60); GFR (African American) 109 ML/MIN (>60); Globulin 3.8 gm/dl (1.3-3.2); Glucose 107 mg/dL (74-106); Potassium 3.4 mmoL/L (3.5-5.1); Sodium 139 mmol/L (136-145); Total Protein,Serum 5.6 gm/dL (6.4-8.2)
[2017-05-13 08:25] LABS: Basophils % 0.2 % (0.1-2.0); Eosinophils # 0.3 K/mm3 (0.0-0.4); Eosinophils % 2.9 % (0.1-12.0); Hematocrit 29.6 % (42.0-52.0); Hemoglobin 9.7 g/dL (14.1-18.0); Lymphocytes # 2.4 K/mm3 (0.7-4.5); Lymphocytes % 21.5 K/mm3 (10-50); Mean Corpuscular HGB Conc 32.8 g/dL (31.8-35.4); Mean Corpuscular Hemoglobin 28.7 pg (27.0-31.2); Mean Corpuscular Volume 87.6 fl (80-94); Mean Platelet Volume 7.7 fl (7.4-10.4); Monocytes # 0.7 K/mm3 (0.1-1.0); Monocytes % 6.5 % (1.7-9.3); Neutrophils # 7.6 K/mm3 (1.8-7.8); Neutrophils % 68.9 % (37.0-80.0); Platelet Count 346 K/mm3 (142-424); Red Blood Count 3.38 M/mm3 (4.60-6.20); Red Cell Distribution Width 13.5 % (11.5-17.5)
--- NOTE | 2017-05-13 09:20 | XR_ITS ---
XR chest 2V HISTORY: Cough and congestion ITS.REASON: Bronchitis ORDERING PHYSICIAN: Ralf Ayala MD PATIENT AGE: 72 years COMPARISON: None available FINDINGS: The cardiomediastinal silhouette and pulmonary vascularity are within normal limits. There is increased density in the right lung base consistent with atelectasis and/or infiltrate. There are small bilateral pleural effusions which have developed in the interval. There are minimal atelectatic changes in the left lung base. No acute bony anomalies. IMPRESSION: 1. Interval development of small bilateral pleural effusions. 2. Patchy density has developed also in the right lung base consistent with atelectasis and/or infiltrate. Persistent mild left basilar atelectasis
--- NOTE | 2017-05-13 10:23 | HMH.GSPN ---
Subjective Patient reports: no new complaints Narrative: Patient coughing up whitish sputum. Denies nausea. Passing gas but no bowel movements. Exam Vital signs and Labs for Last 24 Hours: Temp Pulse Resp BP Pulse Ox 98.3 F 117 H 18 150/108 93 L 05/13/17 08:00 05/13/17 08:00 05/13/17 08:00 05/13/17 08:00 05/13/17 08:00 Laboratory Results - last 24 hr 05/12/17 11:08: POC Glucose 123 05/12/17 16:08: POC Glucose 104 05/12/17 21:38: POC Glucose 99 05/13/17 04:27: POC Glucose 97 05/13/17 06:20: WBC 11.0 H, RBC 3.38 L, Hgb 9.7 L, Hct 29.6 L, MCV 87.6, MCH 28.7, MCHC 32.8, RDW 13.5, Plt Count 346, MPV 7.7, Neut % (Auto) 68.9, Lymph % (Auto) 21.5, [place] % (Auto) 6.5, Eos % (Auto) 2.9, Baso % (Auto) 0.2, Neut # (Auto) 7.6, Lymph # (Auto) 2.4, [place] # (Auto) 0.7, Eos # (Auto) 0.3, Baso # (Auto) 0.0 05/13/17 06:20: Sodium 139, Potassium 3.4 L, Chloride 104, Carbon Dioxide 30, Anion Gap 8.4, BUN 13 D, Creatinine 0.84, Estimated Creat Clear 84, Estimated GFR 90, Est GFR ( Amer) 109 D, Glucose 107 H, Calcium 7.6 L, Total Bilirubin 0.5, AST 43 H D, ALT 44 D, Alkaline Phosphatase 76, Total Protein 5.6 L, Albumin 1.8 L, Globulin 3.8 H, Albumin/Globulin Ratio 0.5 L I & O for Last 24 hours: Intake & Output 05/10/17 05/11/17 05/12/17 05/13/17 11:59 11:59 11:59 11:59 Intake Total 4711 / 4711 3576 / 3576 Output Total 1310 / 1310 1200 / 1200 Balance 3401 / 3401 2376 / 2376 Weight 206 lb 5 oz 194 lb 1 oz - *Routine Respiratory Exam Present: rhonchi - *Routine Abdominal Exam Present: distended, surgical scars, drain Comments: ANDREW drain with appreciable serous drainage. Appears nonbilious. Progress Note: A&P (1) Cholecystitis with cholelithiasis Status: Acute Assessment and plan: Continue intravenous antibiotics for now. Leukocytosis is slowly improving. Hemoglobin/hematocrit slight decrease. Liver function tests within normal limits. We will plan to advance to full liquid diet. Patient states that chest physiotherapy was recommended for the rhonchi. Closely monitor drain output character and hemoglobin hematocrit. Current Visit: Yes (2) Gallstone pancreatitis Status: Acute Current Visit: Yes (3) Leukocytosis Status: Acute Current Visit: Yes (4) Elevated lactic acid level Status: Acute Current Visit: Yes
--- NOTE | 2017-05-13 10:26 | P.PN_ITS ---
Subjective Patient reports: no new complaints Narrative: Patient coughing up whitish sputum. Denies nausea. Passing gas but no bowel movements. Exam Vital signs and Labs for Last 24 Hours: Temp Pulse Resp BP Pulse Ox 98.3 F 117 H 18 150/108 93 L 05/13/17 08:00 05/13/17 08:00 05/13/17 08:00 05/13/17 08:00 05/13/17 08:00 Laboratory Results - last 24 hr 05/12/17 11:08: POC Glucose 123 05/12/17 16:08: POC Glucose 104 05/12/17 21:38: POC Glucose 99 05/13/17 04:27: POC Glucose 97 05/13/17 06:20: WBC 11.0 H, RBC 3.38 L, Hgb 9.7 L, Hct 29.6 L, MCV 87.6, MCH 28.7, MCHC 32.8, RDW 13.5, Plt Count 346, MPV 7.7, Neut % (Auto) 68.9, Lymph % ( Auto) 21.5, [place] % (Auto) 6.5, Eos % (Auto) 2.9, Baso % (Auto) 0.2, Neut # (Auto ) 7.6, Lymph # (Auto) 2.4, [place] # (Auto) 0.7, Eos # (Auto) 0.3, Baso # (Auto) 0.0 05/13/17 06:20: Sodium 139, Potassium 3.4 L, Chloride 104, Carbon Dioxide 30, Anion Gap 8.4, BUN 13 D, Creatinine 0.84, Estimated Creat Clear 84, Estimated GFR 90, Est GFR ( Amer) 109 D, Glucose 107 H, Calcium 7.6 L, Total Bilirubin 0.5, AST 43 H D, ALT 44 D, Alkaline Phosphatase 76, Total Protein 5.6 L, Albumin 1.8 L, Globulin 3.8 H, Albumin/Globulin Ratio 0.5 L I & O for Last 24 hours: Intake & Output 05/10/17 05/11/17 05/12/17 05/13/17 11:59 11:59 11:59 11:59 Intake Total 4711 / 4711 3576 / 3576 Output Total 1310 / 1310 1200 / 1200 Balance 3401 / 3401 2376 / 2376 Weight 206 lb 5 oz 194 lb 1 oz - *Routine Respiratory Exam Present: rhonchi - *Routine Abdominal Exam Present: distended, surgical scars, drain Comments: ANDREW drain with appreciable serous drainage. Appears nonbilious. Progress Note: A&P (1) Cholecystitis with cholelithiasis Status: Acute Assessment and plan: Continue intravenous antibiotics for now. Leukocytosis is slowly improving. Hemoglobin/hematocrit slight decrease. Liver function tests within normal limits. We will plan to advance to full liquid diet. Patient states that chest physiotherapy was recommended for the rhonchi. Closely monitor drain output character and hemoglobin hematocrit. Current Visit: Yes (2) Gallstone pancreatitis Status: Acute Current Visit: Yes (3) Leukocytosis Status: Acute Current Visit: Yes (4) Elevated lactic acid level Status: Acute Current Visit: Yes
[2017-05-13 17:27] LABS: POC Glucose,Bedside 98 mg/dL (70-110)
[2017-05-13 17:31] LABS: POC Glucose,Bedside 83 mg/dL (70-110)
--- NOTE | 2017-05-13 19:22 | PC.NURSE ---
report given to familia
--- NOTE | 2017-05-13 19:30 | PC.NURSE ---
PT FULL CODE, REPORT FROM [email or web address]
[2017-05-14] VITALS (12 sets, daily range): BP systolic 114–137; BP diastolic 56–68; PULSE 79–110; RESP 14–22; TEMP 36.4–37.1; O2SAT 90–97
--- NOTE | 2017-05-14 05:54 | PC.NURSE ---
PT SLEPT MOST OF SHIFT. NO C/O PAIN OR DISCOMFORT REPORTED. PT ON 2LNC. RESPIRATIONS EVEN AND UNLABORED AT THIS TIME WITH SCATTERED RHONCHI. NO COUGH NOTED. PT STARTED ON MUCINEX LAST NIGHT. IV SECURE AND PATENT WITH LR@25/HR AND IV #2 SALINE LOCKED, PATENT. NSR ON MONITOR. ABD DRESSING C/D/I, SMALL STERI STRIPS LOWER ABDOMEN. PT HS ANDREW DRAIN, SECURE AND DRAINING BLOODY FLUID. NO CLOTS NOTED. PT STABLE. WILL CONTINUE TO MONITOR. REPORT TO BE GIVEN TO ONCOMING NURSE.
[2017-05-14 06:52] LABS: Basophils % 0.3 % (0.1-2.0); Eosinophils # 0.4 K/mm3 (0.0-0.4); Eosinophils % 4.5 % (0.1-12.0); Hematocrit 29.7 % (42.0-52.0); Hemoglobin 9.5 g/dL (14.1-18.0); Lymphocytes % 20.3 K/mm3 (10-50); Mean Corpuscular Hemoglobin 28.5 pg (27.0-31.2); Mean Corpuscular Volume 89.2 fl (80-94); Mean Platelet Volume 7.7 fl (7.4-10.4); Monocytes # 0.6 K/mm3 (0.1-1.0); Monocytes % 5.8 % (1.7-9.3); Neutrophils # 6.7 K/mm3 (1.8-7.8); Neutrophils % 69.2 % (37.0-80.0); Platelet Count 397 K/mm3 (142-424); Red Blood Count 3.33 M/mm3 (4.60-6.20); Red Cell Distribution Width 13.7 % (11.5-17.5); White Blood Count 9.7 K/mm3 (4.8-10.8)
[2017-05-14 07:06] LABS: Alanine Aminotransferase 37 U/L (12-78); Albumin Level 1.8 gm/dL (3.4-5.0); Albumin/Globulin Ratio 0.4 (1.1-1.8); Alkaline Phosphatase 82 U/L (46-116); Anion Gap 9.4 mEq/L (5-15); Aspartate Amino Transferase 30 U/L (15-37); Bilirubin,Total 0.6 mg/dL (0.2-1.0); Blood Urea Nitrogen 9 mg/dL (7-18); Calcium 7.8 mg/dL (8.5-10.1); Carbon Dioxide 31 mmol/L (21.0-32.0); Chloride 103 mmol/L (98-107); Creatinine Clearance Estimated 84 mL/min (0-300); Creatinine,Serum 0.93 mg/dL (0.70-1.30); Estimated Glomerular Filt Rate 80 ml/min (>60); GFR (African American) 97 ML/MIN (>60); Globulin 4.1 gm/dl (1.3-3.2); Glucose 105 mg/dL (74-106); Potassium 3.4 mmoL/L (3.5-5.1); Sodium 140 mmol/L (136-145); Total Protein,Serum 5.9 gm/dL (6.4-8.2)
[2017-05-14 07:20] LABS: POC Glucose,Bedside 99 mg/dL (70-110)
[2017-05-14 07:20] LABS: POC Glucose,Bedside 103 mg/dL (70-110)
--- NOTE | 2017-05-14 07:34 | PC.NURSE ---
REPORT GIVEN TO Wenceslao RODRIGUEZ W/C
--- NOTE | 2017-05-14 08:21 | P.PN_ITS ---
Subjective Patient reports: feels better Narrative: Patient states that he is feeling a bit better. He is still on some oxygen. Exam Vital signs and Labs for Last 24 Hours: Temp Pulse Resp BP Pulse Ox 97.9 F 105 H 20 125/63 94 L 05/14/17 07:54 05/14/17 07:54 05/14/17 07:54 05/14/17 07:54 05/14/17 08:00 Laboratory Results - last 24 hr 05/13/17 06:20: WBC 11.0 H, RBC 3.38 L, Hgb 9.7 L, Hct 29.6 L, MCV 87.6, MCH 28.7, MCHC 32.8, RDW 13.5, Plt Count 346, MPV 7.7, Neut % (Auto) 68.9, Lymph % ( Auto) 21.5, [place] % (Auto) 6.5, Eos % (Auto) 2.9, Baso % (Auto) 0.2, Neut # (Auto ) 7.6, Lymph # (Auto) 2.4, [place] # (Auto) 0.7, Eos # (Auto) 0.3, Baso # (Auto) 0.0 05/13/17 11:54: POC Glucose 98 05/13/17 17:11: POC Glucose 83 05/13/17 21:50: POC Glucose 103 05/13/17 21:53: POC Glucose 99 05/14/17 06:05: WBC 9.7, RBC 3.33 L, Hgb 9.5 L, Hct 29.7 L, MCV 89.2, MCH 28.5, MCHC 32.0, RDW 13.7, Plt Count 397, MPV 7.7, Neut % (Auto) 69.2, Lymph % (Auto) 20.3, [place] % (Auto) 5.8, Eos % (Auto) 4.5, Baso % (Auto) 0.3, Neut # (Auto) 6.7 , Lymph # (Auto) 2.0, [place] # (Auto) 0.6, Eos # (Auto) 0.4, Baso # (Auto) 0.0 05/14/17 06:05: Sodium 140, Potassium 3.4 L, Chloride 103, Carbon Dioxide 31, Anion Gap 9.4, BUN 9 D, Creatinine 0.93, Estimated Creat Clear 84, Estimated GFR 80, Est GFR ( Amer) 97, Glucose 105, Calcium 7.8 L, Total Bilirubin 0.6, AST 30 D, ALT 37, Alkaline Phosphatase 82, Total Protein 5.9 L, Albumin 1.8 L, Globulin 4.1 H, Albumin/Globulin Ratio 0.4 L I & O for Last 24 hours: Intake & Output 05/11/17 05/12/17 05/13/17 05/14/17 11:59 11:59 11:59 11:59 Intake Total 4711 / 4711 3576 / 3576 1061 / 1061 Output Total 1310 / 1310 1200 / 1200 3742 / 3742 Balance 3401 / 3401 2376 / 2376 -2681 / -2681 Weight 206 lb 5 oz 194 lb 1 oz - *Routine Abdominal Exam Present: soft, surgical scars, drain Comments: ANDREW output serous. Progress Note: A&P (1) Cholecystitis with cholelithiasis Status: Acute Assessment and plan: Patient progressing well after open cholecystectomy for necrotizing cholecystitis and biliary pancreatitis. I will advance to bland diet. Possible DC home soon with ANDREW in place to monitor output. Current Visit: Yes (2) Gallstone pancreatitis Status: Acute Current Visit: Yes (3) Leukocytosis Status: Acute Current Visit: Yes (4) Elevated lactic acid level Status: Acute Current Visit: Yes
--- NOTE | 2017-05-14 08:25 | HMH.ACPN2 ---
Internal Medicine - PN: Subj *Date: 05/14/17 *Time: 08:25 Interval history: Patient states he does feel slight better today. His abdominal pain is improved as has his shortness of breath. He states he thinks the Lasix has helped. He was able to rest some last night. Exam Vital signs and Labs for Last 24 Hours: Temp Pulse Resp BP Pulse Ox 97.9 F 105 H 20 125/63 94 L 05/14/17 07:54 05/14/17 07:54 05/14/17 07:54 05/14/17 07:54 05/14/17 08:00 Laboratory Results - last 24 hr 05/13/17 06:20: WBC 11.0 H, RBC 3.38 L, Hgb 9.7 L, Hct 29.6 L, MCV 87.6, MCH 28.7, MCHC 32.8, RDW 13.5, Plt Count 346, MPV 7.7, Neut % (Auto) 68.9, Lymph % (Auto) 21.5, [place] % (Auto) 6.5, Eos % (Auto) 2.9, Baso % (Auto) 0.2, Neut # (Auto) 7.6, Lymph # (Auto) 2.4, [place] # (Auto) 0.7, Eos # (Auto) 0.3, Baso # (Auto) 0.0 05/13/17 11:54: POC Glucose 98 05/13/17 17:11: POC Glucose 83 05/13/17 21:50: POC Glucose 103 05/13/17 21:53: POC Glucose 99 05/14/17 06:05: WBC 9.7, RBC 3.33 L, Hgb 9.5 L, Hct 29.7 L, MCV 89.2, MCH 28.5, MCHC 32.0, RDW 13.7, Plt Count 397, MPV 7.7, Neut % (Auto) 69.2, Lymph % (Auto) 20.3, [place] % (Auto) 5.8, Eos % (Auto) 4.5, Baso % (Auto) 0.3, Neut # (Auto) 6.7, Lymph # (Auto) 2.0, [place] # (Auto) 0.6, Eos # (Auto) 0.4, Baso # (Auto) 0.0 05/14/17 06:05: Sodium 140, Potassium 3.4 L, Chloride 103, Carbon Dioxide 31, Anion Gap 9.4, BUN 9 D, Creatinine 0.93, Estimated Creat Clear 84, Estimated GFR 80, Est GFR ( Amer) 97, Glucose 105, Calcium 7.8 L, Total Bilirubin 0.6, AST 30 D, ALT 37, Alkaline Phosphatase 82, Total Protein 5.9 L, Albumin 1.8 L, Globulin 4.1 H, Albumin/Globulin Ratio 0.4 L I & O for Last 24 hours: Intake & Output 05/11/17 05/12/17 05/13/17 05/14/17 11:59 11:59 11:59 11:59 Intake Total 4711 / 4711 3576 / 3576 1061 / 1061 Output Total 1310 / 1310 1200 / 1200 3742 / 3742 Balance 3401 / 3401 2376 / 2376 -2681 / -2681 Weight 206 lb 5 oz 194 lb 1 oz - Constitutional no acute distress - *Routine Respiratory Exam Present: rales (basilar - slightly improved), rhonchi - *Routine Cardiovascular Exam Present: RRR - *Routine Abdominal Exam Present: soft, normoactive bowel sounds, tenderness (around incision sites) - *Routine Extremities Exam Absent: edema Assessment and Plan (1) Cholecystitis with cholelithiasis Current visit: Yes Status: Acute Qualifiers: Cholelithiasis location: gallbladder Category: Medical Code(s): K80.10 - Calculus of gallbladder with chronic cholecystitis without obstruction (2) Gallstone pancreatitis Current visit: Yes Status: Acute Category: Medical Code(s): K85.10 - Biliary acute pancreatitis without necrosis or infection (3) Leukocytosis Current visit: Yes Status: Acute Category: Medical Code(s): D72.829 - Elevated white blood cell count, unspecified (4) Elevated lactic acid level Current visit: Yes Status: Acute Category: Medical Code(s): R79.89 - Other specified abnormal findings of blood chemistry - Assessment and plan all Dx Assessment and Plan for all problems:: Dr. Gatica has advanced patient's diet. Will continue IV lasix. WBC has normalized. Will repeat a CXR tomorrow am.
--- NOTE | 2017-05-14 08:28 | P.PN_ITS ---
Internal Medicine - PN: Subj *Date: 05/14/17 *Time: 08:25 Interval history: Patient states he does feel slight better today. His abdominal pain is improved as has his shortness of breath. He states he thinks the Lasix has helped. He was able to rest some last night. Exam Vital signs and Labs for Last 24 Hours: Temp Pulse Resp BP Pulse Ox 97.9 F 105 H 20 125/63 94 L 05/14/17 07:54 05/14/17 07:54 05/14/17 07:54 05/14/17 07:54 05/14/17 08:00 Laboratory Results - last 24 hr 05/13/17 06:20: WBC 11.0 H, RBC 3.38 L, Hgb 9.7 L, Hct 29.6 L, MCV 87.6, MCH 28.7, MCHC 32.8, RDW 13.5, Plt Count 346, MPV 7.7, Neut % (Auto) 68.9, Lymph % ( Auto) 21.5, [place] % (Auto) 6.5, Eos % (Auto) 2.9, Baso % (Auto) 0.2, Neut # (Auto ) 7.6, Lymph # (Auto) 2.4, [place] # (Auto) 0.7, Eos # (Auto) 0.3, Baso # (Auto) 0.0 05/13/17 11:54: POC Glucose 98 05/13/17 17:11: POC Glucose 83 05/13/17 21:50: POC Glucose 103 05/13/17 21:53: POC Glucose 99 05/14/17 06:05: WBC 9.7, RBC 3.33 L, Hgb 9.5 L, Hct 29.7 L, MCV 89.2, MCH 28.5, MCHC 32.0, RDW 13.7, Plt Count 397, MPV 7.7, Neut % (Auto) 69.2, Lymph % (Auto) 20.3, [place] % (Auto) 5.8, Eos % (Auto) 4.5, Baso % (Auto) 0.3, Neut # (Auto) 6.7 , Lymph # (Auto) 2.0, [place] # (Auto) 0.6, Eos # (Auto) 0.4, Baso # (Auto) 0.0 05/14/17 06:05: Sodium 140, Potassium 3.4 L, Chloride 103, Carbon Dioxide 31, Anion Gap 9.4, BUN 9 D, Creatinine 0.93, Estimated Creat Clear 84, Estimated GFR 80, Est GFR ( Amer) 97, Glucose 105, Calcium 7.8 L, Total Bilirubin 0.6, AST 30 D, ALT 37, Alkaline Phosphatase 82, Total Protein 5.9 L, Albumin 1.8 L, Globulin 4.1 H, Albumin/Globulin Ratio 0.4 L I & O for Last 24 hours: Intake & Output 05/11/17 05/12/17 05/13/17 05/14/17 11:59 11:59 11:59 11:59 Intake Total 4711 / 4711 3576 / 3576 1061 / 1061 Output Total 1310 / 1310 1200 / 1200 3742 / 3742 Balance 3401 / 3401 2376 / 2376 -2681 / -2681 Weight 206 lb 5 oz 194 lb 1 oz - Constitutional no acute distress - *Routine Respiratory Exam Present: rales (basilar - slightly improved), rhonchi - *Routine Cardiovascular Exam Present: RRR - *Routine Abdominal Exam Present: soft, normoactive bowel sounds, tenderness (around incision sites) - *Routine Extremities Exam Absent: edema Assessment and Plan (1) Cholecystitis with cholelithiasis Current visit: Yes Status: Acute Qualifiers: Cholelithiasis location: gallbladder Category: Medical Code(s): K80.10 - Calculus of gallbladder with chronic cholecystitis without obstruction (2) Gallstone pancreatitis Current visit: Yes Status: Acute Category: Medical Code(s): K85.10 - Biliary acute pancreatitis without necrosis or infection (3) Leukocytosis Current visit: Yes Status: Acute Category: Medical Code(s): D72.829 - Elevated white blood cell count, unspecified (4) Elevated lactic acid level Current visit: Yes Status: Acute Category: Medical Code(s): R79.89 - Other specified abnormal findings of blood chemistry - Assessment and plan all Dx Assessment and Plan for all problems:: Dr. Gatica has advanced patient's diet. Will continue IV lasix. WBC has normalized. Will repeat a CXR tomorrow am.
[2017-05-14 11:57] LABS: POC Glucose,Bedside 165 mg/dL (70-110)
[2017-05-14 11:57] LABS: POC Glucose,Bedside 110 mg/dL (70-110)
--- NOTE | 2017-05-14 16:13 | PC.NURSE ---
PATIENT IS SITTING UP IN CHAIR AT THIS TIME. O2 HAS BEEN REMOVED AND PATIENT HAS O2 SAT OF 91% ON RA. PATIENT C/O PAIN AT TIMES 8/10 IN ABDOMEN. LUNGS HAVE RHONCHI T/O AND FINE CRACKLES IN BILATERAL BASES. ABDOMEN IS TENDER AND DISTENDED AT THIS TIME. ANDREW DRAIN HAS MINIMAL DRAINAGE OUT THIS SHIFT AT 20ML SEROSANGUINEOUS FLUID. PATIENT STATES HE HAS BEEN PASSING A LITTLE BIT OF GAS. CALL LIGHT WITHIN REACH WILL CONTINUE TO MONITOR.
[2017-05-14 17:03] LABS: POC Glucose,Bedside 123 mg/dL (70-110)
--- NOTE | 2017-05-14 18:05 | PC.NURSE ---
PATIENT HAD A LARGE BM THIS SHIFT
--- NOTE | 2017-05-14 18:50 | PC.NURSE ---
REPORT BEING GIVEN TO CHUCKIE GUARDADO RN
[2017-05-15] VITALS (13 sets, daily range): BP systolic 105–140; BP diastolic 50–77; PULSE 58–105; RESP 18–23; TEMP 36.7–37.1; O2SAT 88–97; BMI 30.4
--- NOTE | 2017-05-15 01:11 | PC.NURSE ---
PT C/O SOB. O2 SAT WAS 89%. PT WAS INSTRUCTED TO COUGH TO HELP CLEAR AIRWAY. PT BECAME AGGRESSIVE TOWARDS THIS STAFF MEMBER. PT STATED I CAN'T COUGH YOUNG LADY. O2 NC WAS APPLIED. PT WAS EDUCATED ON IMPORTANCE OF COUGHING. PT STATED GET OUT, GET OUT OF MY ROOM. PT IS 91% ON 2L @ THIS TIME.
[2017-05-15 01:48] LABS: POC Glucose,Bedside 115 mg/dL (70-110)
[2017-05-15 01:48] LABS: POC Glucose,Bedside 103 mg/dL (70-110)
--- NOTE | 2017-05-15 05:02 | PC.NURSE ---
PT RESTED WELL THIS SHIFT. PT C/O OF PAIN X1 AFTER AMBULATING TO BATHROOM, MORPHINE ADMIN PER APR. PT C/O OF SOB X1, O2 SAT WAS NOTED TO BE 89%, PT WAS UNCOOPERATIVE WITH STAFF INSTRUCTED TO TAKE DEEP BREATHS AND COUGH TO HELP WITH BREATHING, PT WAS RATHER INSISTENT ON PUTTING O2 ON. PT IS CURRENTLY ON RA, O2 SAT IS 92%. NO ADDITIONAL C/O SOA. OTHER VITALS ARE STABLE AT THIS TIME. ABD INCISION OPEN TO AIR, NO S/S OF INFECTION NOTED, ANDREW DRAIN OUTPUT 10MLS. MEDS ADMIN PER APR. NO OTHER CONCERNS AT THIS TIME. WILL CONT. TO MONITOR.
--- NOTE | 2017-05-15 07:00 | XR_ITS ---
XR chest 2V HISTORY: ITS.REASON: pleural effusions ORDERING PHYSICIAN: Ralf Ayala MD PATIENT AGE: 72 years COMPARISON: 05/13/2017 FINDINGS: The cardiomediastinal silhouette and pulmonary vascularity are within normal limits. Small bilateral pleural effusions once again noted unchanged. The opacification in both lung bases has slightly increased consistent with worsening atelectasis and/or infiltrate more prominent on the right than the left. IMPRESSION: Persistent bilateral pleural effusions with increasing bibasilar airspace disease
--- NOTE | 2017-05-15 07:26 | PC.NURSE ---
REPORT GIVEN TO Giulia MCCOY RN
--- NOTE | 2017-05-15 07:35 | PC.NURSE ---
REPORT GIVEN TO April BANKS W/C
--- NOTE | 2017-05-15 07:46 | P.PN_ITS ---
Subjective Patient reports: feels better Narrative: Patient is tolerating a bland diet that issues. No significant complaints. Exam Vital signs and Labs for Last 24 Hours: Temp Pulse Resp BP Pulse Ox 98.4 F 58 L 20 140/68 94 L 05/15/17 07:39 05/15/17 07:39 05/15/17 07:39 05/15/17 07:39 05/15/17 07:39 Laboratory Results - last 24 hr 05/14/17 05:01: POC Glucose 110 05/14/17 11:43: POC Glucose 165 05/14/17 16:51: POC Glucose 123 05/14/17 20:31: POC Glucose 115 05/14/17 22:42: POC Glucose 103 I & O for Last 24 hours: Intake & Output 05/12/17 05/13/17 05/14/17 05/15/17 11:59 11:59 11:59 11:59 Intake Total 4711 / 4711 3576 / 3576 1061 / 1061 1608 / 1608 Output Total 1310 / 1310 1200 / 1200 3742 / 3742 1170 / 1170 Balance 3401 / 3401 2376 / 2376 -2681 / -2681 438 / 438 Weight 206 lb 5 oz 194 lb 1 oz - *Routine Respiratory Exam Present: rhonchi - *Routine Abdominal Exam Present: soft, surgical scars, drain Progress Note: A&P (1) Cholecystitis with cholelithiasis Status: Acute Assessment and plan: From a surgical standpoint patient is essentially ready for discharge. Would recommend discharge with drain care and follow-up in a couple of days. However , I did explain to the patient that he may remain an inpatient for pulmonary and medical issues at this time. Current Visit: Yes (2) Gallstone pancreatitis Status: Acute Current Visit: Yes (3) Leukocytosis Status: Acute Current Visit: Yes (4) Elevated lactic acid level Status: Acute Current Visit: Yes
--- NOTE | 2017-05-15 08:13 | HMH.ACPN2 ---
Internal Medicine - PN: Subj *Date: 05/15/17 *Time: 08:13 Interval history: Patient states he is feeling slightly better today. He is tolerating his diet. He still has some pain in his abdomen. He states his breathing seems to be a little better. Exam Vital signs and Labs for Last 24 Hours: Temp Pulse Resp BP Pulse Ox 98.4 F 58 L 20 140/68 94 L 05/15/17 07:39 05/15/17 07:39 05/15/17 07:39 05/15/17 07:39 05/15/17 07:39 Laboratory Results - last 24 hr 05/14/17 05:01: POC Glucose 110 05/14/17 11:43: POC Glucose 165 05/14/17 16:51: POC Glucose 123 05/14/17 20:31: POC Glucose 115 05/14/17 22:42: POC Glucose 103 I & O for Last 24 hours: Intake & Output 05/12/17 05/13/17 05/14/17 05/15/17 11:59 11:59 11:59 11:59 Intake Total 4711 / 4711 3576 / 3576 1061 / 1061 1608 / 1608 Output Total 1310 / 1310 1200 / 1200 3742 / 3742 1170 / 1170 Balance 3401 / 3401 2376 / 2376 -2681 / -2681 438 / 438 Weight 206 lb 5 oz 194 lb 1 oz - Constitutional no acute distress - *Routine Respiratory Exam Present: rhonchi - *Routine Cardiovascular Exam Present: RRR - *Routine Abdominal Exam Present: soft, normoactive bowel sounds, tenderness (around incision sites, drain in place, dressing has been removed and pacheco are in place) - *Routine Extremities Exam Absent: edema Assessment and Plan (1) Cholecystitis with cholelithiasis Current visit: Yes Status: Acute Qualifiers: Cholelithiasis location: gallbladder Category: Medical Code(s): K80.10 - Calculus of gallbladder with chronic cholecystitis without obstruction (2) Gallstone pancreatitis Current visit: Yes Status: Acute Category: Medical Code(s): K85.10 - Biliary acute pancreatitis without necrosis or infection (3) Leukocytosis Current visit: Yes Status: Acute Category: Medical Code(s): D72.829 - Elevated white blood cell count, unspecified (4) Elevated lactic acid level Current visit: Yes Status: Acute Category: Medical Code(s): R79.89 - Other specified abnormal findings of blood chemistry - Assessment and plan all Dx Assessment and Plan for all problems:: Surgery note reviewed. From a surgical standpoint patient is essentially ready for discharge. Dr. Gatica wants him discharged wit drain care and he will have to follow-up in a couple of days. The patient still has rhonchi. Awaiting CXR report today.
[2017-05-15 12:24] LABS: POC Glucose,Bedside 116 mg/dL (70-110)
[2017-05-15 12:24] LABS: POC Glucose,Bedside 116 mg/dL (70-110)
--- NOTE | 2017-05-15 14:55 | PC.NURSE ---
PT STATED THAT IF THE CARE TEAM DID NOT HAVE ANYTHING NEW TO TELL HIM THEN HE DOES NOT NEED TO VOICE ANY CONCERNS TO THEM.
--- NOTE | 2017-05-15 16:27 | SW/DCPLANNER ---
RECEIVED REFERRAL FOR HOME HEALTH FOR THIS PATIENT: SENT REFERRAL TO [facility] PER PATIENT CHOICE FOR DRAIN CARE, HOME SAFETY.. CALLED AND SPOKE WITH TANVIR [phone] TO SEE IF HE DISCHARGES IN THE AM (SAT) COULD THEY SEE HIM ON THURSDAY AND SHE STATED THEY WILL BE CALLING THE HOSPITAL TO CONFIRM HE HAS BEEN DISCHARGED PRIOR TO GOING TO HIS HOUSE. PATIENT ORIGNALLY IT WAS THOUGHT HE NEEDED HOME 02 BUT SATS HAVE STAYED IN THE 90'S TODAY AND HE DOES NOT QUALIFY...DISCHARGE PLAN IS FOR SAT PENDING NOTHING ACUTE SHOULD HAPPEN THIS EVENING...
--- NOTE | 2017-05-15 16:40 | SW/DCPLANNER ---
I HAVE ASKED NURSING TO PLEASE DO TEACHING ON THAT DRAIN SO PATIENT CAN BE COMFORTABLE CARING FOR IT...CARLOS JACOBS ASSURED MYSELF AND JESSICA MONTERO SHE WOULD SEE THAT WOULD BE DONE...
[2017-05-15 16:57] LABS: POC Glucose,Bedside 118 mg/dL (70-110)
--- NOTE | 2017-05-15 17:11 | PC.NURSE ---
PATIENT IS BACK IN BED AFTER SPENDING MAJORITY OF THE DAY IN THE CHAIR. HE STATES THAT HE IS FEELING MUCH BETTER TODAY. LUNGS ARE DIMINISHED WITH LIGHT RHONCHI T/O. PATIENT IS COUGHING UP THINK YELLOW SPUTUM. BS ARE ACTIVE. PATIENT WAS EDUCATED ON HOW TO STRIP THE ANDREW DRAIN TUBING AND HOW TO EMPTY AND MEASURE THE DRAINAGE. HE SHOWED UNDERSTANDING BY RETURN DEMONSTRATION. C/O CONSTANT 6/10 PAIN DENIES PAIN MEDS AT THIS TIME. CALL LIGHT WITHIN REACH WILL CONTINUE TO MONITOR
--- NOTE | 2017-05-15 19:04 | PC.NURSE ---
REPORT GIVEN TO CHUCKIE GUARDADO RN
[2017-05-16] VITALS (12 sets, daily range): BP systolic 109–149; BP diastolic 59–67; PULSE 70–105; RESP 16–20; TEMP 36.5–37.2; O2SAT 91–95
[2017-05-16 01:04] LABS: POC Glucose,Bedside 115 mg/dL (70-110)
--- NOTE | 2017-05-16 05:23 | PC.NURSE ---
PT RESTED WELL THIS SHIFT. PT IS CURRENTLY ON RA, SAT 92%. NO C/O OF SOA. PT C/O ABD PAIN X1 THIS AM, MORPHINE ADMIN PER APR. PT EDUCATED ON EMPTYING ANDREW DRAIN. INCISIONS ARE CDI. VSS. MEDS ADMIN PER APR. NO OTHER CONCERNS AT THIS TIME, WILL CONTINUE TO MONITOR.
[2017-05-16 06:23] LABS: POC Glucose,Bedside 101 mg/dL (70-110)
--- NOTE | 2017-05-16 07:25 | PC.NURSE ---
REPORT GIVEN TO Giulia MCCOY. RN
--- NOTE | 2017-05-16 08:15 | P.PN_ITS ---
Internal Medicine - PN: Subj *Date: 05/16/17 *Time: 08:12 Interval history: He has shown gradual improvement. His respirations are easy. He still has some rattling expirations. He is in no distress. His weight is stable at 194. He has no leg edema. Exam Vital signs and Labs for Last 24 Hours: Temp Pulse Resp BP Pulse Ox 97.7 F 105 H 20 125/67 93 L 05/16/17 07:45 05/16/17 07:45 05/16/17 07:45 05/16/17 07:45 05/16/17 07:45 Laboratory Results - last 24 hr 05/15/17 04:59: POC Glucose 116 05/15/17 11:49: POC Glucose 116 05/15/17 16:38: POC Glucose 118 05/15/17 22:21: POC Glucose 115 05/16/17 04:25: POC Glucose 101 I & O for Last 24 hours: Intake & Output 05/13/17 05/14/17 05/15/17 05/16/17 11:59 11:59 11:59 11:59 Intake Total 3576 / 3576 1061 / 1061 1708 / 1708 1482 / 1482 Output Total 1200 / 1200 3742 / 3742 1170 / 1170 2009 Balance 2376 / 2376 -2681 / -2681 538 / 538 -528 / -528 Weight 194 lb 1 oz 194 lb 0.99 oz Microbiology Reports for the Last 24 Hours: Microbiology 05/15/17 20:30 Sputum - Expectorated Sputum Gram Stain - Final - Constitutional no acute distress - *Routine HEENT Exam Eye: Present: PERRL. Absent: conjunctival icterus ENT: Present: mucous membranes moist - *Routine Respiratory Exam Comments: Good air movement. Expiratory rhonchi. But improved. - *Routine Cardiovascular Exam Present: RRR Comments: 100 - *Routine Abdominal Exam Present: soft, tenderness - *Routine Skin Exam Present: intact, dry - *Routine Neurological Exam Present: alert, oriented X3 Assessment and Plan (1) Cholecystitis with cholelithiasis Current visit: Yes Status: Acute Qualifiers: Cholelithiasis location: gallbladder Category: Medical Code(s): K80.10 - Calculus of gallbladder with chronic cholecystitis without obstruction (2) Gallstone pancreatitis Current visit: Yes Status: Acute Category: Medical Code(s): K85.10 - Biliary acute pancreatitis without necrosis or infection (3) Leukocytosis Current visit: Yes Status: Acute Category: Medical Code(s): D72.829 - Elevated white blood cell count, unspecified (4) Elevated lactic acid level Current visit: Yes Status: Acute Category: Medical Code(s): R79.89 - Other specified abnormal findings of blood chemistry (5) Pleural effusion due to another disorder Current visit: Yes Status: Acute Category: Medical Code(s): J90 - Pleural effusion, not elsewhere classified (6) Rhonchi Current visit: Yes Status: Acute Category: Medical Code(s): R09.89 - Other specified symptoms and signs involving the circulatory and respiratory systems (7) Edema Current visit: Yes Status: Acute Category: Medical Code(s): R60.9 - Edema , unspecified - Assessment and plan all Dx Assessment and Plan for all problems:: Home soon. DC telemetry. Saline lock.
[2017-05-16 08:42] LABS: Albumin Level 2.2 gm/dL (3.4-5.0); Blood Urea Nitrogen 16 mg/dL (7-18); Carbon Dioxide 27 mmol/L (21.0-32.0); Chloride 100 mmol/L (98-107); Creatinine Clearance Estimated 69 mL/min (0-300); Creatinine,Serum 1.23 mg/dL (0.70-1.30); Estimated Glomerular Filt Rate 58 ml/min (>60); GFR (African American) 70 ML/MIN (>60); Glucose 159 mg/dL (74-106); Sodium 134 mmol/L (136-145)
[2017-05-16 08:56] LABS: Alanine Aminotransferase 36 U/L (12-78); Albumin/Globulin Ratio 0.5 (1.1-1.8); Alkaline Phosphatase 86 U/L (46-116); Aspartate Amino Transferase 32 U/L (15-37); Bilirubin,Total 0.5 mg/dL (0.2-1.0); Globulin 4.7 gm/dl (1.3-3.2); Total Protein,Serum 6.9 gm/dL (6.4-8.2)
--- NOTE | 2017-05-16 09:20 | HMH.GSPN ---
Subjective Patient reports: no new complaints Exam Vital signs and Labs for Last 24 Hours: Temp Pulse Resp BP Pulse Ox 97.7 F 105 H 20 125/67 93 L 05/16/17 07:45 05/16/17 07:45 05/16/17 07:45 05/16/17 07:45 05/16/17 08:00 Laboratory Results - last 24 hr 05/15/17 04:59: POC Glucose 116 05/15/17 11:49: POC Glucose 116 05/15/17 16:38: POC Glucose 118 05/15/17 22:21: POC Glucose 115 05/16/17 04:25: POC Glucose 101 05/16/17 08:10: Sodium 134 L, Potassium 4.0, Chloride 100, Carbon Dioxide 27, Anion Gap 11.0, BUN 16 D, Creatinine 1.23 D, Estimated Creat Clear 69, Estimated GFR 58 L, Est GFR ( Amer) 70 D, Glucose 159 H, Total Bilirubin 0.5, AST 32, ALT 36, Alkaline Phosphatase 86, Total Protein 6.9, Albumin 2.2 L, Globulin 4.7 H, Albumin/Globulin Ratio 0.5 L I & O for Last 24 hours: Intake & Output 05/13/17 05/14/17 05/15/17 05/16/17 11:59 11:59 11:59 11:59 Intake Total 3576 / 3576 1061 / 1061 1708 / 1708 1492 / 1492 Output Total 1200 / 1200 3742 / 3742 1170 / 1170 2009 Balance 2376 / 2376 -2681 / -2681 538 / 538 -518 / -518 Weight 194 lb 1 oz 194 lb 0.99 oz Microbiology Reports for the Last 24 Hours: Microbiology 05/15/17 20:30 Sputum - Expectorated Sputum Gram Stain - Final - Constitutional no acute distress - *Routine Respiratory Exam Absent: respiratory distress - *Routine Abdominal Exam Present: soft Comments: inc c/d/i ANDREW output minimal Progress Note: A&P (1) Cholecystitis with cholelithiasis Status: Acute Assessment and plan: Overall, doing well status post cholecystectomy. Likely discharge home tomorrow. Remove one half of pacheco prior to discharge tomorrow. Although Alvin-Ordoñez output remains minimal, the patient will be discharged with drains in place and will likely have them removed later this week upon follow-up. Current Visit: Yes (2) Gallstone pancreatitis Status: Acute Current Visit: Yes (3) Leukocytosis Status: Acute Current Visit: Yes (4) Elevated lactic acid level Status: Acute Current Visit: Yes (5) Pleural effusion due to another disorder Status: Acute Current Visit: Yes (6) Rhonchi Status: Acute Current Visit: Yes (7) Edema Status: Acute Current Visit: Yes
[2017-05-16 09:42] LABS: Calcium 8.8 mg/dL (8.5-10.1)
[2017-05-16 11:44] LABS: POC Glucose,Bedside 100 mg/dL (70-110)
[2017-05-16 16:50] LABS: POC Glucose,Bedside 111 mg/dL (70-110)
--- NOTE | 2017-05-16 17:26 | PC.NURSE ---
PATIENT HAS ALTERNATED BETWEEN SITTING ON SIDE OF BED AND LYING IN BED T/O SHIFT. HE HAS BEEN ENCOURAGED TO AMBULATE HE STATES HE WILL WALK IN THE [place] AFTER DINNER. LUNGS HAVE SOME SCATTERED RHONCHI. PATIENT C/O PAIN 6/10 IN ABDOMEN AT THIS TIME HOWEVER DECLINES PAIN MEDS. BS ARE ACTIVE. PATIENT STATES HE HAS BEEN PASSING GAS. CALL LIGHT WITHIN REACH WILL CONTINUE TO MONITOR
--- NOTE | 2017-05-16 19:00 | PC.NURSE ---
REPORT GIVEN TO CHUCKIE GUARDADO RN
[2017-05-16 22:20] LABS: POC Glucose,Bedside 123 mg/dL (70-110)
--- NOTE | 2017-05-17 02:33 | PC.NURSE ---
NO ACUTE CHANGES NOTED. PT HAS AMBULATED IN HALLWAY THIS SHIFT. HAS C/O ABDOMINAL DISCOMFORT AT TIMES. MEDICATION ADMINISTERED PER APR. HR HAS BEEN ELEVATED AT TIMES. OTHER VSS. ABDOMINAL INCISION RESPIRATORY EQUIPMENT ASSISTANT. NO S/S OF INFECTION AT THIS TIME. ANDREW DRAIN INTACT. NO OTHER CONCERNS AT THIS TIME. WILL CONTINUE TO MONITOR.
[2017-05-17 04:00] VITALS: BP 114/54; PULSE 90; RESP 18; TEMP 36.8; O2SAT 91
[2017-05-17 04:47] LABS: POC Glucose,Bedside 110 mg/dL (70-110)
[2017-05-17 06:25] VITALS: PULSE 84; O2SAT 95
--- NOTE | 2017-05-17 07:18 | PC.NURSE ---
REPORT HAND OFF TO CRISPIN MCCOY
[2017-05-17 07:55] VITALS: BP 110/68; PULSE 90; RESP 18; TEMP 37.1; O2SAT 93
--- NOTE | 2017-05-17 09:30 | HMH.GSPN ---
Subjective Patient reports: still having pain Exam Vital signs and Labs for Last 24 Hours: Temp Pulse Resp BP Pulse Ox 98.7 F 90 18 110/68 93 L 05/17/17 07:55 05/17/17 07:55 05/17/17 07:55 05/17/17 07:55 05/17/17 07:55 Laboratory Results - last 24 hr 05/16/17 08:10: Calcium 8.8 D 05/16/17 11:32: POC Glucose 100 05/16/17 16:40: POC Glucose 111 05/16/17 21:56: POC Glucose 123 05/17/17 04:06: POC Glucose 110 I & O for Last 24 hours: Intake & Output 05/14/17 05/15/17 05/16/17 05/17/17 11:59 11:59 11:59 11:59 Intake Total 1061 / 1061 1708 / 1708 1492 / 1492 2800 / 2800 Output Total 3742 / 3742 1170 / 1170 2009 3655 / 3655 Balance -2681 / -2681 538 / 538 -518 / -518 -855 / -855 Weight 194 lb 0.99 oz - Constitutional no acute distress - *Routine Respiratory Exam Absent: respiratory distress - *Routine Abdominal Exam Present: soft (incisions c/d/i. ANDREW with minimal output.) Progress Note: A&P (1) Cholecystitis with cholelithiasis Status: Acute Assessment and plan: Stable s/p cholecystectomy. Remove 1/2 of pacheco Continue ANDREW for now (likely remove upon RTC appt.) Current Visit: Yes (2) Gallstone pancreatitis Status: Acute Current Visit: Yes (3) Leukocytosis Status: Acute Current Visit: Yes (4) Elevated lactic acid level Status: Acute Current Visit: Yes (5) Pleural effusion due to another disorder Status: Acute Current Visit: Yes (6) Rhonchi Status: Acute Current Visit: Yes (7) Edema Status: Acute Current Visit: Yes
--- NOTE | 2017-05-17 10:28 | PC.NURSE ---
Laurie CARLSON along with Vick GODDARD removed every other staple from pts 2 abdominal incisions. Umbilical incision has 2 pacheco removed, large incision to upper abdomen noted to have have 8 pacheco removed. Edges well approximated. No drainage noted once removed. Steri Strips applied to new open areas of incision without difficulty. Pt resting comfortable to no questions or concerns. Pt tolerated well. Call light within reach.
--- NOTE | 2017-05-17 12:52 | PC.NURSE ---
0915 ENCOURAGED PATIENT TO GET UP TO CHAIR FOR A WHILE. STATES HES NOT READY RIGHT NOW. BED PLACED IN CHAIR POSITION.
--- NOTE | 2017-05-17 13:49 | P.PN_ITS ---
Internal Medicine - PN: Subj *Date: 05/17/17 *Time: 13:45 Interval history: Mr. Smith is ready for discharge. He has been comfortable the past several days. His respiratory status has stabilized. His oximetry is good. He is not showing leg edema. Please note his weight. He is stable from a postsurgical standpoint and will follow up with Dr. Gatica on Thursday. He sees a Dr. Cruz in [place] for primary care and will follow up with her. Exam Vital signs and Labs for Last 24 Hours: Temp Pulse Resp BP Pulse Ox 98.7 F 90 18 110/68 93 L 05/17/17 07:55 05/17/17 07:55 05/17/17 07:55 05/17/17 07:55 05/17/17 07:55 Laboratory Results - last 24 hr 05/16/17 16:40: POC Glucose 111 05/16/17 21:56: POC Glucose 123 05/17/17 04:06: POC Glucose 110 I & O for Last 24 hours: Intake & Output 05/15/17 05/16/17 05/17/17 05/18/17 11:59 11:59 11:59 11:59 Intake Total 1708 / 1708 1492 / 1492 2800 / 2800 480 / 480 Output Total 1170 / 1170 2009 4155 / 4155 Balance 538 / 538 -518 / -518 -1355 / -1355 480 / 480 Weight 194 lb 0.99 oz - Constitutional no acute distress - *Routine HEENT Exam Eye: Present: PERRL. Absent: conjunctival icterus ENT: Present: mucous membranes moist - *Routine Respiratory Exam Present: decreased breath sounds, CTA bilaterally - *Routine Cardiovascular Exam Present: RRR - *Routine Abdominal Exam Present: soft, drain - *Routine Extremities Exam Absent: edema - *Routine Skin Exam Present: intact Assessment and Plan (1) Cholecystitis with cholelithiasis Current visit: Yes Status: Acute Qualifiers: Cholelithiasis location: gallbladder Category: Medical Code(s): K80.10 - Calculus of gallbladder with chronic cholecystitis without obstruction (2) Gallstone pancreatitis Current visit: Yes Status: Acute Category: Medical Code(s): K85.10 - Biliary acute pancreatitis without necrosis or infection (3) Leukocytosis Current visit: Yes Status: Acute Category: Medical Code(s): D72.829 - Elevated white blood cell count, unspecified (4) Elevated lactic acid level Current visit: Yes Status: Acute Category: Medical Code(s): R79.89 - Other specified abnormal findings of blood chemistry (5) Pleural effusion due to another disorder Current visit: Yes Status: Acute Category: Medical Code(s): J90 - Pleural effusion, not elsewhere classified (6) Rhonchi Current visit: Yes Status: Acute Category: Medical Code(s): R09.89 - Other specified symptoms and signs involving the circulatory and respiratory systems (7) Edema Current visit: Yes Status: Acute Category: Medical Code(s): R60.9 - Edema , unspecified - Assessment and plan all Dx Assessment and Plan for all problems:: Discharge today. See medication list. He will be continued on diuretic. He will be given a limited dose of pain medication. He will see Dr. Gatica this Thursday in the office. He will contact Dr. Cruz for follow-up.
[2017-05-17 21:03] LABS: POC Glucose,Bedside 127 mg/dL (70-110)
--- NOTE | 2017-05-22 13:43 | [facility].DCSUM ---
General - General Admission date: 05/09/17 Discharge date: 05/17/17 HPI HPI: Mr. Smith is a 72-year-old white male with no significant medical hx. He states that over the past couple of days he has had right lateral abdominal pain. This had become significantly more severe since last night. There are no exacerbating or alleviating factors. He has never had similar prior episodes. He has been nauseated and vomiting. He presented to the emergency department this morning. He underwent evaluation which revealed a leukocytosis and slight elevation of liver function tests as well as elevation of lipase. He had imaging including CT scan as well as gallbladder ultrasound performed. Gallbladder ultrasound revealed multiple gallstones with some gallbladder wall thickening and 7 mm common bile duct. He was admitted for inpatient management and surgical consultation. Additional history is offered by the patient's significant other. She indicates that there may be a reduced ejection fraction of 25% though the patient denies any cardiac history. She further explains that he has had a severe head injury and there is cognitive impairment and memory impairment. Hospital Course Hospital Course: Dr. Gatica saw the patient and planned for IV fluids and antibiotics. His liver function tests and pancreatic enzymes were closely monitored. Patient's pancreatic enzymes improved and Dr. Gatica planned to do a cholecystectomy with cholangiogram. The patient was initially going to have a lap cholecystectomy, but he had a severely acutely inflamed gallbladder. There was full-thickness necrosis with some patchy liquefied necrosis and findings consistent with perforation of the gallbladder and bilious liquid within the abdomen. The gallbladder was packed full of multiple gallstones. He ended up having an open cholecystecomy and a ANDREW drain was placed. He was taken to step down and started on a clear liquid diet the day after surgery. IV abx were continued. He was placed on oxygen after the procedure and started on neb treatments. A CXR was ordered and showed bilateral pleural effusions. He was started on lasix. His diet was advanced and his WBC normalized. His weight decreased with the lasix and his breathing improved. He did have some hyperglycemia and this will need to be discussed with his primary care physician. He was stable to be discharged on 05/17/17 with the ANDREW drain in place. He was discharged on a diuretic. He will be given a limited dose of pain medication. He will see Dr. Gatica this Thursday in the office. He will contact Dr. Cruz for follow-up. Objective Vital signs: Temp Pulse Resp BP Pulse Ox 98.7 F 90 18 110/68 93 L 05/17/17 07:55 05/17/17 07:55 05/17/17 07:55 05/17/17 07:55 05/17/17 07:55 Narrative: - Constitutional no acute distress - *Routine HEENT Exam Head: Present: normocephalic, atraumatic Eye: Present: EOMI, PERRL ENT: Present: mucous membranes dry - *Routine Neck Exam Present: supple, full ROM - *Routine Respiratory Exam Present: CTA bilaterally - *Routine Cardiovascular Exam Present: RRR - *Routine Abdominal Exam Present: soft, normoactive bowel sounds, tenderness (RUQ and RMQ) - *Routine Extremities Exam Absent: edema - *Routine Skin Exam Present: intact - *Routine Neurological Exam Present: alert, oriented X3 DS: Diagnosis - Discharge Diagnosis (1) Cholecystitis with cholelithiasis Status: Resolved (2) Gallstone pancreatitis Status: Resolved (3) Leukocytosis Status: Resolved (4) Elevated lactic acid level Status: Resolved (5) Hyperglycemia Status: Acute (6) Edema Status: Resolved (7) Pleural effusion due to another disorder Status: Acute (8) Rhonchi Status: Resolved (9) Status post cholecystectomy Status: Acute Discharge Plan - Patient Discharge Instructions ACTIVITY: Limited activity DIET: low fat, low ch
--- NOTE | 2017-05-22 15:46 | P.DS_ITS ---
General - General Admission date: 05/09/17 Discharge date: 05/17/17 HPI HPI: Mr. Smith is a 72-year-old white male with no significant medical hx. He states that over the past couple of days he has had right lateral abdominal pain. This had become significantly more severe since last night. There are no exacerbating or alleviating factors. He has never had similar prior episodes. He has been nauseated and vomiting. He presented to the emergency department this morning. He underwent evaluation which revealed a leukocytosis and slight elevation of liver function tests as well as elevation of lipase. He had imaging including CT scan as well as gallbladder ultrasound performed. Gallbladder ultrasound revealed multiple gallstones with some gallbladder wall thickening and 7 mm common bile duct. He was admitted for inpatient management and surgical consultation. Additional history is offered by the patient's significant other. She indicates that there may be a reduced ejection fraction of 25% though the patient denies any cardiac history. She further explains that he has had a severe head injury and there is cognitive impairment and memory impairment. Hospital Course Hospital Course: Dr. Gatica saw the patient and planned for IV fluids and antibiotics. His liver function tests and pancreatic enzymes were closely monitored. Patient's pancreatic enzymes improved and Dr. Gatica planned to do a cholecystectomy with cholangiogram. The patient was initially going to have a lap cholecystectomy, but he had a severely acutely inflamed gallbladder. There was full-thickness necrosis with some patchy liquefied necrosis and findings consistent with perforation of the gallbladder and bilious liquid within the abdomen. The gallbladder was packed full of multiple gallstones. He ended up having an open cholecystecomy and a ANDREW drain was placed. He was taken to step down and started on a clear liquid diet the day after surgery. IV abx were continued. He was placed on oxygen after the procedure and started on neb treatments. A CXR was ordered and showed bilateral pleural effusions. He was started on lasix. His diet was advanced and his WBC normalized. His weight decreased with the lasix and his breathing improved. He did have some hyperglycemia and this will need to be discussed with his primary care physician. He was stable to be discharged on 05/17/17 with the ANDREW drain in place. He was discharged on a diuretic. He will be given a limited dose of pain medication. He will see Dr. Gatica this Thursday in the office. He will contact Dr. Cruz for follow-up. Objective Vital signs: Temp Pulse Resp BP Pulse Ox 98.7 F 90 18 110/68 93 L 05/17/17 07:55 05/17/17 07:55 05/17/17 07:55 05/17/17 07:55 05/17/17 07:55 Narrative: - Constitutional no acute distress - *Routine HEENT Exam Head: Present: normocephalic, atraumatic Eye: Present: EOMI, PERRL ENT: Present: mucous membranes dry - *Routine Neck Exam Present: supple, full ROM - *Routine Respiratory Exam Present: CTA bilaterally - *Routine Cardiovascular Exam Present: RRR - *Routine Abdominal Exam Present: soft, normoactive bowel sounds, tenderness (RUQ and RMQ) - *Routine Extremities Exam Absent: edema - *Routine Skin Exam Present: intact - *Routine Neurological Exam Present: alert, oriented X3 DS: Diagnosis - Discharge Diagnosis (1) Cholecystitis with cholelithiasis Status: Resolved (2) Gallstone pancreatitis Status: Resolved (3) Leukocy
== END 2017-05-17 16:00 | disposition home or self-care (01) | DRG 414 ==
LOC: ER 10:41 → 2ND 11:18
PROVIDERS: Surgery; Admitting Provider Family Medicine; Emergency Provider Family Medicine; Visit Provider Family Medicine
PROC: 0FT40ZZ Resection of Gallbladder, Open Approach (ICD-10-PCS; principal; 2017-05-11 12:00)
DX: K80.10 Calculus of gallbladder with chronic cholecystitis without obstruction (principal); K85.10 Biliary acute pancreatitis without necrosis or infection; J90 Pleural effusion, not elsewhere classified; Z87.891 Personal history of nicotine dependence
CPT/HCPCS: 47605; 36415; 71046; 74176; 74300; 76000; 76705; 80053; 80061; 81001; 82150; 82962; 83605; 83615; 83690; 83735; 84100; 85007; 85025; 87040; 87070; 87205; 88304; 93306; 94640; 94761; 96366; 96374; 96375; 96376; 99284; G0378; J0131; J2405; J2543; Q9966; Q9967